=== PATIENT | female | born 1965 | race Caucasian/White ===

== ENCOUNTER 2016-06-13 12:51 | Day surgery (SDC) | payer MEDICAID ==
[~2016-06-13] VITALS: Ht 165.1 cm; Wt 64.1 kg
[~2016-06-13 12:51] MED LIST: BAYER CHEWABLE81 MG PO; CHRONULAC30 ML PO; KLONOPIN0.5 MG PO; OXYCODONE HCL5 MG PO; PHENERGAN25 M1 PO; ZEGERID 20 MG C1 CAP PO
[2016-06-13 13:47] LABS: BASOPHILS 0.5 % (0.0-2.0); EOSINOPHILS 0.9 % (0-7); HEMATOCRIT 24.7 % (36.0-48.0); HEMOGLOBIN 8.3 g/dL (12-16); IMMATURE GRANULOCYTES 0.5 % (0-5); LYMPHOCYTES 15.3 % (15-50); MCH 32.7 pg (26.0-34.0); MCHC 33.6 g/dL (31.0-37.0); MCV 97.2 fL (80.0-100.0); MEAN PLATELET VOLUME 11.3 fL (7.4-10.4); NEUTROPHILS 74.8 % (40-80); PLATELET COUNT 137 10x3/uL (130-400); RBC 2.54 10x6/uL (4.00-5.40); RDW 15.5 % (11.5-14.5); WBC 10.3 10x3/uL (4.8-10.8)
[2016-06-13 14:13] LABS: ALBUMIN 2.3 g/dL (3.4-5.0); ANION GAP 11.1 mmol/L (8-16); BILIRUBIN - TOTAL 2.16 mg/dL (0.2-1.3); CALCIUM 7.6 mg/dL (8.5-10.1); CARBON DIOXIDE 26.3 mmol/L (21.0-32.0); CREATININE - SERUM 2.2 mg/dL (0.6-1.3); POTASSIUM - SERUM 4.4 mmol/L (3.5-5.1); PROTEIN - SERUM 5.7 g/dL (6.4-8.2)
[2016-06-13] MEDS ORDERED: PROVENTIL HFA6.7 GM INH (14:57)
[2016-06-13] MEDS ORDERED: DESERYL100 MG PO (14:57)
[2016-06-13] MEDS ORDERED: FUROSEMIDE40 MG PO (14:58)
[2016-06-13] MEDS ORDERED: K-DUR20 MEQ PO (14:58)
[2016-06-13] MEDS ORDERED: ALDACTONE100 MG PO (14:58)
[2016-06-13] MEDS ORDERED: ZOFRAN ODT4 MG/UDTAB PO (14:58)
[2016-06-13] MEDS ORDERED: FOLATE0.4 MG PO (14:59)
[2016-06-13 15:04] VITALS: Ht 165.1 cm; Wt 64.1 kg
--- NOTE | 2016-07-03 12:04 | OP ---
PATIENT NAME: KRYS GOSS MEDICAL RECORD: [id number] :61 LOCATION:D.OPS ADMISSION DATE: SURGEON: BRITTNY MONTESINOS DO DATE OF OPERATION: 06/13/2016 PROCEDURE: EGD. ENDOSCOPIST: Brittny Montesinos DO. SCOPE: Olympus video gastroscope. MEDICATIONS: Propofol 140 mg and lidocaine 50 mg IV per anesthesia. INDICATION FOR TIVA: Cirrhosis and ascites. INDICATION FOR PROCEDURE: Dysphagia and variceal screening. FINDINGS: Informed consent was given. The patient was made comfortable with the above medications. After reaching an adequate level of sedation by slow IV push, the patient was placed on her left side. The endoscope was then advanced through the mouth under direct visualization to the second portion of the duodenum. In the esophagus, there was evidence of grade I to grade II esophageal varices located in the distal third of the esophagus down to the GE junction. I did not feel that these were large enough to warrant variceal banding. The scope was advanced beyond the GE junction into the stomach where there was diffuse portal hypertensive gastropathy present throughout all regions of the stomach. Upon retroflexion, the cardia appeared normal. The scope was then advanced down to the duodenum where there was some edematous changes related to portal hypertension located in the bulb and second portion of the duodenum. The duodenum was otherwise normal. Scope was then withdrawn from the patient. The patient tolerated the procedure well and there were no complications. IMPRESSION: 1. Grade I-II esophageal varices, not warranting esophageal variceal banding. 2. Portal hypertensive gastropathy and duodenopathy. PLAN AND RECOMMENDATIONS: 1. Recommend a barium esophagram regarding the dysphagia. There were no strictures encountered on this examination in the esophagus. 2. Continue current medications. 3. Recommend repeat EGD in 1 year for esophageal variceal surveillance. TRANSINT:[id number] Voice Confirmation ID: [id number] DOCUMENT ID: [id number] BRITTNY MONTESINOS DO at 1204 CC: [id number] DICTATION DATE: 06/13/16 1541 CLOTH PAINTER: 06/13/16 2233 [facility] 06/13/16 [place] [address]
== END 2016-06-13 17:00 | disposition home or self-care (01) ==
LOC: D.OPS 12:51
PROVIDERS: Internal Medicine Gastroenterology
DX: K76.6 Portal hypertension (principal); K31.89 Other diseases of stomach and duodenum; I85.10 Secondary esophageal varices without bleeding; K74.60 Unspecified cirrhosis of liver; R18.8 Other ascites

== ENCOUNTER → 2016-07-06 09:19 | Outpatient (CLI) | payer MEDICAID ==
[2016-06-13 15:04] VITALS: BMI 23.5
[~2016-07-06 09:19] MED LIST changes: +ALDACTONE100 MG PO; +DESERYL100 MG PO; +FOLATE0.4 MG PO; +FUROSEMIDE40 MG PO; +K-DUR20 MEQ PO; +PEPCID20 MG PO; +PROVENTIL HFA6.7 GM INH; +ZOFRAN ODT4 MG/UDTAB PO
[2016-07-06 11:15] LABS: BASOPHILS 0.8 % (0.0-2.0); EOSINOPHILS 1.7 % (0-7); HEMATOCRIT 27.9 % (36.0-48.0); HEMOGLOBIN 9.5 g/dL (12-16); IMMATURE GRANULOCYTES 0.2 % (0-5); LYMPHOCYTES 21.7 % (15-50); MCH 30.8 pg (26.0-34.0); MCHC 34.1 g/dL (31.0-37.0); MCV 90.6 fL (80.0-100.0); MEAN PLATELET VOLUME 10.2 fL (7.4-10.4); MONOCYTES 7.2 % (2-11); NEUTROPHILS 68.4 % (40-80); PLATELET COUNT 176 10x3/uL (130-400); RBC 3.08 10x6/uL (4.00-5.40); RDW 14.9 % (11.5-14.5); WBC 10.2 10x3/uL (4.8-10.8)
[2016-07-06 11:16] LABS: CREATININE - SERUM 2.1 mg/dL (0.6-1.3)
[2016-07-06 11:17] LABS: ALBUMIN 2.9 g/dL (3.4-5.0); ANION GAP 17.3 mmol/L (8-16); BILIRUBIN - TOTAL 2.8 mg/dL (0.2-1.3); CALCIUM 8.8 mg/dL (8.5-10.1); CARBON DIOXIDE 22.7 mmol/L (21.0-32.0)
== END | disposition home or self-care (01) ==
LOC: D.US 09:19
PROVIDERS: Internal Medicine Gastroenterology
DX: K74.60 Unspecified cirrhosis of liver (principal)

== ENCOUNTER → 2016-07-27 08:19 | Outpatient (CLI) | payer MEDICAID ==
[2016-06-13 15:04] VITALS: BMI 23.5
[~2016-07-27 08:19] MED LIST changes: -PEPCID20 MG PO
== END | disposition home or self-care (01) ==
LOC: D.RAD 08:19
DX: R11.2 Nausea with vomiting, unspecified (principal); R13.10 Dysphagia, unspecified

== ENCOUNTER 2016-08-03 10:20 | Inpatient (IN) | payer MEDICAID ==
[~2016-08-03] VITALS: Ht 165.1 cm; Wt 61.4 kg
--- NOTE | ~2016-08-03 | OP ---
PATIENT NAME: KRYS GOSS MEDICAL RECORD: [id number] :61 LOCATION:D.ICU D.2312 ADMISSION DATE:08/03/16 SURGEON: STEVIE OSEGUERA MD DATE OF OPERATION: 08/17/2016 DATE OF OPERATION: 08/17/2016 PREOPERATIVE DIAGNOSES: 1. Acute renal failure. 2. Alcoholic cirrhosis. 3. Esophageal varices secondary to alcoholic cirrhosis. 4. Portal hypertension. 5. Ascites secondary to cirrhosis. POSTOPERATIVE DIAGNOSES: 1. Acute renal failure. 2. Alcoholic cirrhosis. 3. Esophageal varices secondary to alcoholic cirrhosis. 4. Portal hypertension. 5. Ascites secondary to cirrhosis. PROCEDURE: Right IJ 12-1/2 cm Trialysis catheter. SURGEON: Stevie Oseguera MD. REPORT OF PROCEDURE: The patient's right neck was prepped and draped in sterile fashion. A needle was used to inject a total of 5 cc of 1% lidocaine into the right neck. We then used a scalp needle to find the right internal jugular vein and then placed our larger Angiocath needle through this needle a wire was advanced with ease. Over this wire, dilator was placed followed by the Trialysis catheter. The catheter aspirated nonpulsatile dark blood and flushed easily in all 3 ports. This was sutured into place with 4-0 nylons. COMPLICATIONS: None. CONDITION: Stable. ANESTHESIA: Local. BLOOD LOSS: Minimal. Procedure done in the ICU at the bedside. TRANSINT:[id number] Voice Confirmation ID: [id number] DOCUMENT ID: [id number] STEVIE OSEGUERA MD CC: [id number] DICTATION DATE: 08/17/161213 REMOTE BROADCAST TECHNICIAN: 08/17/16 2318 ADM IN [place] [id number] [place] [address]
[2016-08-03 11:18] LABS: APPEARANCE HAZY (CLEAR); COLOR DK YELLOW (YELLOW); GLUCOSE NEGATIVE (NEGATIVE); KETONE NEGATIVE (NEGATIVE); NITRITE NEGATIVE (NEGATIVE); PROTEIN NEGATIVE (NEGATIVE)
[2016-08-03 11:22] LABS: BACTERIA MODERATE /hpf (NONE SEEN); BILIRUBIN 2+ (NEGATIVE); EPITHELIAL CELLS 0-5 /hpf (0-5); HYALINE CAST OCC /lpf (NONE SEEN); LEUKOCYTE ESTERASE TRACE (NEGATIVE); RED CELLS - URINE >50 /hpf (0-5); WHITE CELLS - URINE 0-5 /hpf (0-5)
[2016-08-03 11:32] LABS: INR 2.04 (0.85-1.17)
[2016-08-03 11:33] LABS: APTT 34.8 SECONDS (22.8-39.4)
[2016-08-03 13:33] LABS: BASOPHILS 0.1 % (0-2); EOSINOPHILS 0 % (0-7); IMMATURE GRANULOCYTES 0.2 % (0-5); LYMPHOCYTES 15.8 % (15-50); MCHC 34.1 g/dL (31.0-37.0); MEAN PLATELET VOLUME 9.6 fL (7.4-10.4); MONOCYTES 7.9 % (2-11); PLATELET COUNT 209 10x3/uL (130-400); RDW 15.6 % (11.5-14.5); WBC 9.2 10x3/uL (4.8-10.8)
[2016-08-03 13:36] LABS: HEMOGLOBIN 7.5 g/dL (12-16)
[2016-08-03 14:25] LABS: ALBUMIN 2.6 g/dL (3.4-5.0); ALKALINE PHOSPHATASE 110 U/L (46-116); ALT (SGPT) 6 U/L (10-68); BILIRUBIN - TOTAL 4.54 mg/dL (0.2-1.3); CALC OSMOLALITY 276 mosm/kg (275-300); CALCIUM 8.9 mg/dL (8.5-10.1); CARBON DIOXIDE 29.8 mmol/L (21.0-32.0); CHLORIDE - SERUM 93 mmol/L (98-107); CREATININE - SERUM 3.4 mg/dL (0.6-1.3); GLUCOSE 105 mg/dL (74-106); PROTEIN - SERUM 6.5 g/dL (6.4-8.2); SODIUM 133 mmol/L (136-145); UREA NITROGEN 44 mg/dL (7-18); eGFR NON AFRICAN AMERICAN 15 mL/min (90-120)
[2016-08-03 14:33] LABS: AMYLASE - SERUM 49 U/L (25-115); LIPASE 150 U/L (73-393); MAGNESIUM - SERUM 1.7 mg/dL (1.8-2.4); PRO BNP 1385 pg/mL (0-125); TROPONIN-I < 0.017 ng/mL (0.000-0.060)
[2016-08-03 18:59] LABS: HEMATOCRIT 21.9 % (36.0-48.0)
[2016-08-03 19:01] LABS: HEMOGLOBIN 7.2 g/dL (12-16)
[2016-08-03 19:21] LABS: CKMB 0.3 U/L (0.0-3.6); CREATINE KINASE 23 UL (21-215)
[2016-08-03 20:00] VITALS: BP 120/69; BP 91/57
--- NOTE | 2016-08-03 21:46 | NUR ---
PATEINT REFUSES BRAGA AT THIS TIME, 325 TEA COLORED URINE WITH SEDIMENT NOTED IN URINE HAT. PIV INFUSING NS@100mL/HR. 2 ORDERS NOTED ON E-MAR. PATIENT PLACED ON FALLS PERCAUTION DUE TO INSTABLILTY. SHE HAD A SHOWER, AND SON AT BEDSIDE.
[2016-08-03 23:00] VITALS: BP 91/57
[2016-08-03 23:54] VITALS: BP 92/47
[2016-08-04] VITALS (19 sets, daily range): BP systolic 85–120; BP diastolic 45–73; Ht 165.1 cm; Wt 61.4 kg
[2016-08-04] MEDS ORDERED: PEPCID20 MG PO (01:26)
--- NOTE | 2016-08-04 02:31 | NUR ---
1 UNIT OF PBRC STARTED, INFUSING @100mL/HR.
--- NOTE | 2016-08-04 03:00 | NUR ---
BLOOD INFUSING WITH NO DISTRESS NOTED, PT DENIES ANY DISCOMFORT, SAFETY MEASURES IN PLACE, CL IN REACH
[2016-08-04 06:56] LABS: BASOPHILS 0.1 % (0-2); EOSINOPHILS 0.4 % (0-7); HEMATOCRIT 25.4 % (36.0-48.0); IMMATURE GRANULOCYTES 0.2 % (0-5); LYMPHOCYTES 26.8 % (15-50); MCH 30.6 pg (26.0-34.0); MCHC 34.3 g/dL (31.0-37.0); MCV 89.4 fL (80.0-100.0); MONOCYTES 8.7 % (2-11); NEUTROPHILS 63.8 % (40-80); PLATELET COUNT 193 10x3/uL (130-400); RBC 2.84 10x6/uL (4.00-5.40); RDW 15.2 % (11.5-14.5); WBC 8.9 10x3/uL (4.8-10.8)
[2016-08-04 06:57] LABS: HEMOGLOBIN 8.7 g/dL (12-16)
[2016-08-04 07:05] LABS: INR 2.38 (0.85-1.17); PROTIME 26.1 SECONDS (11.6-15.0)
--- NOTE | 2016-08-04 07:10 | NUR ---
DR BUSTAMANTE CALLED DURING THE SHIFT LAST NIGHT AND WANTED A CONSULT TO IR FOR DOING A LARGE VOLUME PARACENTISIS, TRANSFUSE 1 UNIT OF BLOOD, DECREASE IV RATE TO 75mL/HR, ORDERED LEVAQUIN FOR UTI.
[2016-08-04 07:15] LABS: ALBUMIN 2.4 g/dL (3.4-5.0); ALKALINE PHOSPHATASE 105 U/L (46-116); BILIRUBIN - TOTAL 4.17 mg/dL (0.2-1.3); CALC OSMOLALITY 273 mosm/kg (275-300); CALCIUM 8.8 mg/dL (8.5-10.1); CARBON DIOXIDE 29.4 mmol/L (21.0-32.0); CHLORIDE - SERUM 93 mmol/L (98-107); GLUCOSE 92 mg/dL (74-106); PROTEIN - SERUM 6.4 g/dL (6.4-8.2); SODIUM 131 mmol/L (136-145); UREA NITROGEN 43 mg/dL (7-18); eGFR NON AFRICAN AMERICAN 17 mL/min (90-120)
[2016-08-04 07:17] LABS: ALT (SGPT) 3 U/L (10-68); POTASSIUM - SERUM 2.9 mmol/L (3.5-5.1)
[2016-08-04 07:27] LABS: CKMB 0.2 U/L (0.0-3.6); CREATINE KINASE 17 UL (21-215); MAGNESIUM - SERUM 1.7 mg/dL (1.8-2.4); PHOSPHOROUS 3.1 mg/dL (2.5-4.9)
[2016-08-04 07:29] LABS: TROPONIN-I 0.017 ng/mL (0.000-0.060)
--- NOTE | 2016-08-04 09:22 | NUR ---
AWAKE AND ALERT. ORIENTED X3. C/O NAUSEA AT THIS TIME. GIVEN 4MG ZOFRAN SLOW IVP FOR SAME. WILL MONITOR. LUNGS ARE CLEAR BILATERALLY, NO COUGH NOTED. SKIN IS INTACT WITHOUT REDNESS. IV TO RIGHT WRIST IS PATENT WITHOUT REDNESS AT INSERTION SITE. DENIES NEEDS.
--- NOTE | 2016-08-04 10:00 | NUR ---
RESTING QUIETLY IN BED WITH EYES CLOSED. NO C/O VOICED.
[2016-08-04 10:38] LABS: HEMATOCRIT 25.3 % (36.0-48.0); HEMOGLOBIN 8.6 g/dL (12-16)
--- NOTE | 2016-08-04 13:45 | NUR ---
ANDREIA DRIP UP AT THIS TIME. DENIES NEEDS.
--- NOTE | 2016-08-04 15:30 | NUR ---
DR. COLLAZO HERE. NEW ORDERS RECEIVED FOR CT GUIDED PARACENTESIS TODAY. CONSENT SIGNED PER PATIENT. FAMILY IN ROOM.
--- NOTE | 2016-08-04 16:47 | NUR ---
REQUESTED AND GIVEN 1MG DILAUDID SLOW IVP FOR C/O ABDOMINAL PAIN. WILL MONITOR.
--- NOTE | 2016-08-04 17:08 | NUR ---
RETURNED FROM PARACENTESIS. REPORTED 5.5L OFF.
[2016-08-04 17:19] LABS: HEMATOCRIT 26.4 % (36.0-48.0); HEMOGLOBIN 8.9 g/dL (12-16)
[2016-08-04 17:49] LABS: PROTEIN - BODY FLUID 2.2 G/DL
[2016-08-04 18:33] LABS: LYMPH - BF 64 %; MACROPHAGES BF 29 %; NEUT - BF 7 %
--- NOTE | 2016-08-04 19:28 | NUR ---
RESTING QUIETLY WIT EYES CLOSED. VSS. NO CHANGES NOTED.
--- NOTE | 2016-08-04 19:51 | NUR ---
GREETED AND ASSESSED PT AT THIS TIME.
--- NOTE | 2016-08-04 22:05 | NUR ---
ALL HS MEDS WERE GIVEN. PT HAS A VISITOR IN THE ROOM AND SHE IS RESING WITH HER EYES CLOSED. WHEN ASSESSED SHE WAS EASY TO CRY OUT IF HER ABD WAS TOUCHED. SHE FEELS IF IT IS FEELING BACK UP.
[2016-08-04 23:21] LABS: HEMATOCRIT 21.7 % (36.0-48.0)
[2016-08-04 23:24] LABS: HEMOGLOBIN 7.3 g/dL (12-16)
[2016-08-05] VITALS (12 sets, daily range): BP systolic 90–123; BP diastolic 52–64
--- NOTE | 2016-08-05 04:48 | NUR ---
LAB CALLED WITH THE RESULTS OF H & H ABOUT MIDNIGHT AND IT WAS 7.3 / 21.7. DR BUSTAMANTE WAS CALLED AND AN ORDER FOR ONE UNIT WAS TAKEN. SHE WAS GIVEN HER IVPB ANTIBOTICS A LITTLE EARLY AND THEN THE BLOOD WAS STARTED. IT IS STILL INFUSING AT THIS TIME.
[2016-08-05 05:41] LABS: ALBUMIN 2.8 g/dL (3.4-5.0); BILIRUBIN - TOTAL 3.31 mg/dL (0.2-1.3); CALCIUM 8.3 mg/dL (8.5-10.1); CREATININE - SERUM 2.4 mg/dL (0.6-1.3); MAGNESIUM - SERUM 1.7 mg/dL (1.8-2.4); PHOSPHOROUS 2.7 mg/dL (2.5-4.9); PROTEIN - SERUM 5.6 g/dL (6.4-8.2)
[2016-08-05 05:44] LABS: BASOPHILS 0.1 % (0-2); EOSINOPHILS 0.6 % (0-7); HEMOGLOBIN 8.1 g/dL (12-16); IMMATURE GRANULOCYTES 0.3 % (0-5); LYMPHOCYTES 22.7 % (15-50); MCH 29.6 pg (26.0-34.0); MCHC 33.8 g/dL (31.0-37.0); MCV 87.6 fL (80.0-100.0); MEAN PLATELET VOLUME 10.8 fL (7.4-10.4); MONOCYTES 7.9 % (2-11); NEUTROPHILS 68.4 % (40-80); RBC 2.74 10x6/uL (4.00-5.40); RDW 15.1 % (11.5-14.5); WBC 6.7 10x3/uL (4.8-10.8)
[2016-08-05 05:45] LABS: PLATELET COUNT 124 10x3/uL (130-400)
[2016-08-05 05:52] LABS: ANION GAP 13.6 mmol/L (8-16); POTASSIUM - SERUM 3.6 mmol/L (3.5-5.1)
[2016-08-05 07:53] LABS: INR 2.58 (0.85-1.17); PROTIME 27.9 SECONDS (11.6-15.0)
[2016-08-05 11:35] LABS: HEMATOCRIT 28.2 % (36.0-48.0); HEMOGLOBIN 9.7 g/dL (12-16)
--- NOTE | 2016-08-05 16:30 | NUR ---
UP TO BR WITH SBA. VOIDED 500cc DARK TEA COLORED URINE. LINENS CHANGED.
[2016-08-05 17:07] LABS: HEMATOCRIT 30.5 % (36.0-48.0); HEMOGLOBIN 10.4 g/dL (12-16)
--- NOTE | 2016-08-05 18:32 | NUR ---
REFUSED CL SUPPER TRAY. DRANK A LEMON/[place] SODA. NO CHANGES NOTED AT THIS TIME. DENIES NEEDS.
--- NOTE | 2016-08-05 19:40 | NUR ---
RECIEVED SHIFT REPORT. PT IS LYING IN BED. ALERT AND ORIENTED AND ABLE TO VERBALIZE NEEDS. IV IS PATENT AND FLUIDS ARE RUNNING PER ORDER. PT IS AMBULATORY WITH ASSISTANCE. PT DENIES ANY PAIN AT THIS TIME. NO NEEDS ARE VERBALIZED AT THIS TIME. WILL CONTINUE TO MONITOR. SIDE RAILS ARE UP X 2. BED IS IN LOWEST POSITION. CALL LIGHT IS WITHIN REACH.
--- NOTE | 2016-08-05 20:41 | NUR ---
SHIFT ASSESSMENT COMPLETED. NIGHT MEDS GIVEN WITH NO PROBLEMS. NO NEEDS ARE VOICED. VISITOR AT BEDSIDE. WILL MONITOR. SIDE RAILS X 2. BED LOW. CALL LIGHT IN REACH.
[2016-08-05 23:18] LABS: HEMOGLOBIN 9.4 g/dL (12-16)
--- NOTE | 2016-08-06 02:40 | NUR ---
PT IV TO RIGHT WRIST LEAKING. D/C'D WITH CATHETER INTACT. NEW IV RESITED TO LEFT FOREARM. 22G. 1 ATTEMPT. GOOD BLOOD RETURN. FLUSHES W/O DIFFICULTY. FLUIDS HOOKED BACK UP PER ORDER. PT TOLERATED WELL. DENIES NEEDS. WILL MONITOR. SIDE RAILS X 2. BED LOW. CALL LIGHT IN REACH.
[2016-08-06 04:00] VITALS: BP 114/66
--- NOTE | 2016-08-06 07:45 | NUR ---
PATIENT RESTING QUIETLY WITH EYES CLOSED. RESPIRATIONS ARE EVEN AND UNLABORED ON ROOM AIR. NO SIGNS OF DISTRESS NOTED.
[2016-08-06 07:49] LABS: BASOPHILS 0.1 % (0-2); EOSINOPHILS 0.2 % (0-7); IMMATURE GRANULOCYTES 0.1 % (0-5); LYMPHOCYTES 7.6 % (15-50); MCH 30.4 pg (26.0-34.0); MCHC 34.6 g/dL (31.0-37.0); MCV 87.8 fL (80.0-100.0); MEAN PLATELET VOLUME 9.7 fL (7.4-10.4); MONOCYTES 7.4 % (2-11); NEUTROPHILS 84.6 % (40-80); RBC 2.96 10x6/uL (4.00-5.40); RDW 15.2 % (11.5-14.5)
[2016-08-06 07:58] VITALS: BP 99/55
[2016-08-06 08:06] LABS: PLATELET COUNT 154 10x3/uL (130-400); WBC 8.8 10x3/uL (4.8-10.8)
[2016-08-06 08:10] LABS: PROTIME 22.9 SECONDS (11.6-15.0)
[2016-08-06 08:16] LABS: ALBUMIN 2.5 g/dL (3.4-5.0); ANION GAP 14.2 mmol/L (8-16); BILIRUBIN - TOTAL 3.9 mg/dL (0.2-1.3); CALCIUM 8.2 mg/dL (8.5-10.1); CARBON DIOXIDE 23.2 mmol/L (21.0-32.0); CREATININE - SERUM 1.9 mg/dL (0.6-1.3); MAGNESIUM - SERUM 1.3 mg/dL (1.8-2.4); POTASSIUM - SERUM 3.4 mmol/L (3.5-5.1); PROTEIN - SERUM 5.4 g/dL (6.4-8.2)
[2016-08-06 08:24] LABS: PHOSPHOROUS 1.9 mg/dL (2.5-4.9)
[2016-08-06 08:37] LABS: INR 2.02 (0.85-1.17)
[2016-08-06 11:54] VITALS: BP 116/60
[2016-08-06 15:50] VITALS: BP 116/64
[2016-08-06 20:00] VITALS: BP 118/68
--- NOTE | 2016-08-06 20:00 | NUR ---
ASSESSMENT PER FLOWSHEET. IV PATENT LEFT HAND OF NS AT 75CC'S/HR ZOFRANGTT AT 4.7CC'S/HR K+RIDER #1 INFUSING AT 55CC'S/HR. SITE CLEAR. SPOUSE AT BEDSIDE.
--- NOTE | 2016-08-06 21:00 | NUR ---
ATTEMPT TO GIVEN PATIENT PO MAGNESIUM PER ELECTROLYTE PROTOCAL FOR A LEVEL OF 1.3. PATIENT VOMITED MED UP WILL TRY IV MAGNESIUM WHEN ABLE. TRIED PO PHOSPEROUS PATIENT VOMITED IT UP. NOTIFIED PHARMAY NEED FOR IV PHOS.
--- NOTE | 2016-08-06 22:00 | NUR ---
EYES CLOSED RESPIRATIONS WITH EASE AND UNLABORED.
--- NOTE | 2016-08-06 23:48 | NUR ---
K+ RIDER #3 HUNG PER ELECTROLYTE PROTOCAL.
[2016-08-07] VITALS: BP 112/66
--- NOTE | 2016-08-07 | NUR ---
RESTING QUIETLY K+ RIDER STILL HANGING. K+ #2 UP.
--- NOTE | 2016-08-07 01:14 | NUR ---
FIRST DOSE OF MAGNESIUM GM1 HUNG FOR A LEVEL OF 1.3 GIVEN PER ELECTROLYTE PROTOCAL.
--- NOTE | 2016-08-07 01:33 | NUR ---
LAST K+ 10MEQ HUNG PER ELECTROLYTE PROTOCAL. PATIENT STILL VOMITS INTO BLUE BAG NEW BAG GIVEN TO PATIENT.
--- NOTE | 2016-08-07 04:00 | NUR ---
MEDS PER JUN. RESTING QUIETLY.
[2016-08-07 05:39] LABS: BASOPHILS 0 % (0-2); EOSINOPHILS 0.2 % (0-7); HEMATOCRIT 25.6 % (36.0-48.0); HEMOGLOBIN 8.7 g/dL (12-16); IMMATURE GRANULOCYTES 0.4 % (0-5); LYMPHOCYTES 8.9 % (15-50); MCV 88.3 fL (80.0-100.0); MEAN PLATELET VOLUME 9.8 fL (7.4-10.4); MONOCYTES 8.6 % (2-11); NEUTROPHILS 81.9 % (40-80); PLATELET COUNT 137 10x3/uL (130-400); RDW 15.2 % (11.5-14.5); WBC 8.4 10x3/uL (4.8-10.8)
[2016-08-07 06:02] LABS: INR 1.63 (0.85-1.17); PROTIME 19.3 SECONDS (11.6-15.0)
[2016-08-07 06:08] LABS: ALBUMIN 2.3 g/dL (3.4-5.0); BILIRUBIN - TOTAL 2.71 mg/dL (0.2-1.3); CALCIUM 8.2 mg/dL (8.5-10.1); CARBON DIOXIDE 23.5 mmol/L (21.0-32.0); CREATININE - SERUM 1.8 mg/dL (0.6-1.3); MAGNESIUM - SERUM 2.3 mg/dL (1.8-2.4); PHOSPHOROUS 2.9 mg/dL (2.5-4.9); POTASSIUM - SERUM 3.5 mmol/L (3.5-5.1); PROTEIN - SERUM 5.2 g/dL (6.4-8.2)
--- NOTE | 2016-08-07 06:41 | NUR ---
NO CHANGES IN ASSESSMENT. LAST DOSE OF MAGNESIUM HANGING.
[2016-08-07 08:25] VITALS: BP 111/70
--- NOTE | 2016-08-07 09:00 | NUR ---
Patient Name: KRYS GOSS Admission Status: ER Accout number: [id number] Admission Date: 08-03-2016 : 1965 Admission Diagnosis:OTHER ASCITES Attending: CIRA Current LOS: 4 Anticipated DC Date: 08-10-2016 Planned Disposition: Home Primary Insurance: [place] PRIVATE OPTIONS [place]FF[place] Discharge Planning Comments: CM MET WITH PATIENT REGARDING D/C NEEDS AND PLANS. PATIENT STATED SHE LIVES WITH HER SPOUSE (LIANNA) AND HE WILL DRIVE HER HOME AT DISCHARGE. PATIENT STATED THERE ARE NO STEPS OR STAIRS AT HER HOME. PATIENT IS INDENDENT WITH HER CARE AND HAS A WALKER, WHEELCHAIR, SHOWER CHAIR, AND BEDSIDE COMMODE. PATIENTS SPOUSE HELPS HER WITH HER MEDICATIONS. PATIENTS PCP IS DR. ZHANG AND PHARMACY IS [facility]. PATIENT DOES NOT THINK SHE WILL NEED HOME HEALTH AT DISCHARGE. CM WILL CONTINUE TO FOLLOW PATIENT WITH D/C NEEDS AND PLANS. PCP DR. ZHANG PHARMACY [facility] [phone] LIANNA (SPOUSE) [phone] Supervisor Byproducts: Deb Urbina Is the patient Alert and Oriented? Yes 0 * How many steps to enter\exit or inside your home? 0 0 * PCP DR. ZHANG 0 * Pharmacy [facility] 0 * Preadmission Environment Home with Family 0 * ADLs Independent 0 * Equipment Bedside Commode Shower Chair Walker Wheelchair 0 * List name and contact numbers for known caregivers / representatives who currently or will assist patient after discharge: LIANNA (SPOUSE) [phone] 0 * Community resources currently utilized None 0 * Additional services required to return to the preadmission environment? Yes 0 * Can the patient safely return to the preadmission environment? Yes 0 * Has this patient been hospitalized within the prior 30 days at any hospital? No 0 Grand Total: 0
[2016-08-07 12:45] VITALS: BP 130/73
--- NOTE | 2016-08-07 13:27 | NUR ---
NUTRITION MONITORING & EVAL CHART REVIEWED. CLEAR LIQUIDS, NOT TOLERATING PER MD NOTE. WILL CONTINUE TO MONITOR PO INTAKE, PT PROGRESS. RD FOLLOWING
--- NOTE | 2016-08-07 16:28 | NUR ---
PT AOX4 RESP EVEN AND NONLABORED IV TO LEFT FOREARM PATENT AND INTACT. PT HERE FOR ASCITES. PT DENIES NEEDS AT THIS TIME. SRX2 CALL LIGHT WITHIN REACH WILL CONTINUE TO MONITOR
[2016-08-07 16:41] VITALS: BP 103/56
[2016-08-07 20:00] VITALS: BP 99/54
--- NOTE | 2016-08-07 20:00 | NUR ---
ASSESSMENT PER FLOWSHEET. ALERT AND ORINETED X3 STATES FEELING MUCH BETTER NO NAUSEA OR VOMITING. IV PATENT LEFT HAND OF BANANA BAG AT 75CC'S/HR ZOFRAN GTT AT 4.6CC'S/HR. SMILING AND TALKATIVE.
--- NOTE | 2016-08-07 21:15 | NUR ---
TOOK MEDS PER JUN. NO N OR V.
[2016-08-08] VITALS (13 sets, daily range): BP systolic 92–116; BP diastolic 56–69
--- NOTE | 2016-08-08 | NUR ---
EYES CLOSED RESPIRATIONS WITH EASE AND UNLABORED.
--- NOTE | 2016-08-08 03:37 | NUR ---
RESTING QUIETLY AROUSES EASILY TO VERBAL STIMULI.
[2016-08-08 06:42] LABS: BASOPHILS 0 % (0-2); EOSINOPHILS 1.5 % (0-7); HEMATOCRIT 24.2 % (36.0-48.0); HEMOGLOBIN 8.1 g/dL (12-16); IMMATURE GRANULOCYTES 0.2 % (0-5); LYMPHOCYTES 18.2 % (15-50); MCH 29.3 pg (26.0-34.0); MCHC 33.5 g/dL (31.0-37.0); MCV 87.7 fL (80.0-100.0); MEAN PLATELET VOLUME 10.6 fL (7.4-10.4); MONOCYTES 11.6 % (2-11); NEUTROPHILS 68.5 % (40-80); PLATELET COUNT 133 10x3/uL (130-400); RBC 2.76 10x6/uL (4.00-5.40); RDW 15.5 % (11.5-14.5); WBC 9.5 10x3/uL (4.8-10.8)
[2016-08-08 06:50] LABS: ALBUMIN 2.5 g/dL (3.4-5.0); BILIRUBIN - TOTAL 2.37 mg/dL (0.2-1.3); CALCIUM 8.3 mg/dL (8.5-10.1); CARBON DIOXIDE 24.9 mmol/L (21.0-32.0); CREATININE - SERUM 1.7 mg/dL (0.6-1.3); MAGNESIUM - SERUM 2.6 mg/dL (1.8-2.4); PROTEIN - SERUM 5.4 g/dL (6.4-8.2)
[2016-08-08 06:51] LABS: ANION GAP 12.1 mmol/L (8-16)
--- NOTE | 2016-08-08 06:58 | NUR ---
K+ LEVEL=3.0 40MEQ KCL PO GIVEN IN JUICE PER ELECTROLYTE PROTOCAL.
--- NOTE | 2016-08-08 07:10 | NUR ---
REPORT RECEIVED FROM CAR HOSTLER NURSE. CALL LIGHT IN REACH.
[2016-08-08 07:12] LABS: INR 1.85 (0.85-1.17); PROTIME 21.3 SECONDS (11.6-15.0)
--- NOTE | 2016-08-08 08:28 | NUR ---
PT WITH CLEAR LIQUID BREAKFAST TRAY AT THIS TIME. ALERT AND ORIENTED X4. DENIES NEEDS AT PRESENT TIME. RESPIRATIONS EVEN AND NON LABORED. CALL LIGHT IN REACH. WILL CONTIINUE WITH PLAN OF CARE.
--- NOTE | 2016-08-08 08:58 | NUR ---
ASSESSMENT COMPLETED. AM MEDS ADMINISTERED. REFUSES SCDs AT THIS TIME. IV TUBING CHANGED PER HOSPITAL POLICY. EMERGENCY CONTACT INFO OBTAINED AND PLACED IN CHART. REFUSES PASSWORD. CARE PLAN REVIEWE. CALL LIGHT IN REACH. WILL CONTINUE WITH PLAN OF CARE.
--- NOTE | 2016-08-08 10:26 | NUR ---
WILL RECEIVE ANOTHER UNIT OF PRBCs TODAY D/T HCT LESS THAN 25. PATIENT IS AWARE.
--- NOTE | 2016-08-08 11:15 | NUR ---
AT BEDSIDE AT THIS TIME. NO NEEDS VOICED. CALL LIGHT IN REACH.
--- NOTE | 2016-08-08 13:04 | NUR ---
SPOKE WITH LACEY BANUELOS, ABOUT PATIENT C/O PAIN AND NEEDING PAIN MEDS. NEW ORDER FOR DILAUDID 0.5 MG SIVP. ADMINISTERED PER ORDER. TO CT VIA BED.
--- NOTE | 2016-08-08 13:37 | NUR ---
BACK IN ROOM AT THIS TIME. MEDS ADMINISTERED PER ORDER. SAYS PAIN IS STILL A 10.
--- NOTE | 2016-08-08 13:56 | NUR ---
IV SITED TO RIGHT WRIST WITH 20 GA X2 STICKS.
--- NOTE | 2016-08-08 14:13 | NUR ---
PRBC UNIT 1 INITIATED @ 125 CC/HR VIA PUMP PER JAQUI MASTERS. VS WNL. CALL LIGHT IN REACH. WILL CONTINUE WITH PLAN OF CARE.
--- NOTE | 2016-08-08 16:40 | NUR ---
DILAUDID 0.5 MG SIVP PER C/O PAIN OF 7 ADMINISTERED IVP WITH OTHER EVENING MEDS. 40 MEQ K+ PO PER ELECTROLYTE. PRBC UNIT 1 COMPLETED. IV IS FLUSHING.
--- NOTE | 2016-08-08 18:42 | NUR ---
FLAGYL IVPB PER ORDER. NO CHANGES IN INITIAL ASSESSMENT. STILL REFUSES SCDs. AT BEDSIDE. CALL LIGHT IN REACH. WILL CONTINUE WITH PLAN OF CARE.
--- NOTE | 2016-08-08 19:55 | NUR ---
C/O ABDOMINAL PAIN RATES PAIN LEVEL #8. DILAUDID 0.5MG IVP GIVEN FOR PAIN CONTROL.
--- NOTE | 2016-08-08 20:00 | NUR ---
ASSESSMENT PER FLOWSHEET. IV PATENT LEFT HAND BANANA BAG AT 125CC'S/HR SALINE LOCK PATENT RT ARM. HOB UP 30 DEGREES. SR UP X2 CALL LIGHT WITHIN REACH SCD'S ON. DENIES NEEDS SPOUSE AT BEDSIDE.
[2016-08-09] VITALS (13 sets, daily range): BP systolic 87–122; BP diastolic 47–77
--- NOTE | 2016-08-09 | NUR ---
RESTING AT THIS TIME.
--- NOTE | 2016-08-09 01:20 | NUR ---
C/O PAIN IN ABDOMEN RATES PAIN LEVEL 10 SHARP.DILAUDID 0.5MG IVP GIVEN FOR PAIN CONTROL.
[2016-08-09 05:33] LABS: BASOPHILS 0.1 % (0-2); EOSINOPHILS 1.4 % (0-7); IMMATURE GRANULOCYTES 0.3 % (0-5); LYMPHOCYTES 17.9 % (15-50); MCH 30.2 pg (26.0-34.0); MCHC 34.2 g/dL (31.0-37.0); MCV 88.4 fL (80.0-100.0); MEAN PLATELET VOLUME 10.6 fL (7.4-10.4); MONOCYTES 13.7 % (2-11); NEUTROPHILS 66.6 % (40-80)
[2016-08-09 05:41] LABS: HEMATOCRIT 31.9 % (36.0-48.0); HEMOGLOBIN 10.9 g/dL (12-16); PLATELET COUNT 174 10x3/uL (130-400); RBC 3.61 10x6/uL (4.00-5.40); WBC 13.7 10x3/uL (4.8-10.8)
[2016-08-09 05:52] LABS: ALBUMIN 2.6 g/dL (3.4-5.0); BILIRUBIN - TOTAL 3.69 mg/dL (0.2-1.3); CALCIUM 8.6 mg/dL (8.5-10.1); CARBON DIOXIDE 24.3 mmol/L (21.0-32.0); CREATININE - SERUM 1.9 mg/dL (0.6-1.3); PROTEIN - SERUM 5.9 g/dL (6.4-8.2)
[2016-08-09 05:53] LABS: ANION GAP 10.9 mmol/L (8-16); POTASSIUM - SERUM 4.2 mmol/L (3.5-5.1)
--- NOTE | 2016-08-09 06:29 | NUR ---
RESTING QUIETLY REMAINS NPO FOR PROCEDURE
--- NOTE | 2016-08-09 07:50 | NUR ---
SLEEPING, AROUSED TO VOICE, DENIES NEEDS, WILL CONTINUE TO MONITOR
--- NOTE | 2016-08-09 12:40 | NUR ---
PATIENT IN BED RESTING QUIETLY. RESPIRATIONS EVEN AND UNLABORED. SIDE RAILS UP X2. BED IN LOW POSITION. CALL LIGHT IN REACH.
[2016-08-10] VITALS: BP 111/61
[2016-08-10 04:00] VITALS: BP 99/59
--- NOTE | 2016-08-10 04:15 | NUR ---
PT HAS HAD 2 DARK WATERY STOOLS THIS SHIFT. SENT DOWN SAMPLES TO LAB. GAVE DILAUDID ONCE FOR RIGHT SIDE PAIN. PT C/O OF "A LITTLE NAUSEA." ABDOMEN DISTENDED AND FIRM. CLEAR LIQUID DIET. WILL CONTINUE TO MONITOR.
[2016-08-10 06:54] LABS: BASOPHILS 0.2 % (0-2); EOSINOPHILS 1.8 % (0-7); HEMATOCRIT 30.2 % (36.0-48.0); HEMOGLOBIN 10.3 g/dL (12-16); IMMATURE GRANULOCYTES 0.3 % (0-5); LYMPHOCYTES 24.6 % (15-50); MCHC 34.1 g/dL (31.0-37.0); MEAN PLATELET VOLUME 10.4 fL (7.4-10.4); MONOCYTES 18.6 % (2-11); NEUTROPHILS 54.5 % (40-80); PLATELET COUNT 181 10x3/uL (130-400); RBC 3.43 10x6/uL (4.00-5.40); RDW 16.4 % (11.5-14.5); WBC 12.3 10x3/uL (4.8-10.8)
[2016-08-10 07:12] LABS: ALBUMIN 2.5 g/dL (3.4-5.0); BILIRUBIN - TOTAL 2.75 mg/dL (0.2-1.3); CALCIUM 8.4 mg/dL (8.5-10.1); PROTEIN - SERUM 5.7 g/dL (6.4-8.2)
[2016-08-10 07:15] LABS: ANION GAP 15.3 mmol/L (8-16); CARBON DIOXIDE 18.1 mmol/L (21.0-32.0); CREATININE - SERUM 2.5 mg/dL (0.6-1.3); POTASSIUM - SERUM 3.4 mmol/L (3.5-5.1)
--- NOTE | 2016-08-10 07:45 | NUR ---
AWAKE, HAS SOME COMPLAINTS OF PAIN, PAIN MEDS GIVEN PER MAR, DENIES OTHER NEEDS, BED LOWEST POSITION, CALL LIGHT IN REACH, WILL CONTINUE TO MONITOR
[2016-08-10 07:50] VITALS: BP 86/44
--- NOTE | 2016-08-10 08:00 | NUR ---
PATIENT IN MID CLEMENT POSITION RESTING WITH EYE CLOSED. RESPIRATIONS EVEN AND UNLABORED. SIDE RAILS UP X2. BED IN LOW POSITION. CALL LIGHT IN REACH.
[2016-08-10 12:10] VITALS: BP 91/47
--- NOTE | 2016-08-10 13:01 | NUR ---
NUTRITION MONITORING & EVAL CHART REVIEWED. CURRENTLY ON CLEAR LIQUID DIET. REFUSED LUNCH. PT MAY REQUIRE PPN NUTRITION SUPPORT IF UNABLE TO TOLERATE FULL LIQUIDS IN [address] FOLLOWING
[2016-08-10 15:40] VITALS: BP 84/49
[2016-08-10 20:00] VITALS: BP 93/49
--- NOTE | 2016-08-10 21:56 | NUR ---
REC'D. ASSISTED TO BATHRM. STATES HAS HAD SEVERAL LOOSE STOOLS TODAY.C/O GENERALIZED PAIN RATING 2 ON 1-10 PAIN SCALE.WILL CONTINUE TO MONITOR FOR ANY CHGES AND FOLLOW CURRENT PLAN OF CARE.
--- NOTE | 2016-08-10 22:58 | NUR ---
PATIENT RESTING IN BED WITH EYES CLOSED AND NO VISIBLE SIGNS OF DISTRESS. BED IN LOWEST POSITION AND CALL LIGHT WITHIN REACH.
[2016-08-11] VITALS: BP 101/66
[2016-08-11 04:00] VITALS: BP 96/56
[2016-08-11 05:13] LABS: BASOPHILS 0.2 % (0-2); EOSINOPHILS 1.4 % (0-7); HEMATOCRIT 27.5 % (36.0-48.0); HEMOGLOBIN 9.4 g/dL (12-16); IMMATURE GRANULOCYTES 0.5 % (0-5); LYMPHOCYTES 21.6 % (15-50); MCH 29.8 pg (26.0-34.0); MCHC 34.2 g/dL (31.0-37.0); MCV 87.3 fL (80.0-100.0); MEAN PLATELET VOLUME 10.7 fL (7.4-10.4); MONOCYTES 16.5 % (2-11); NEUTROPHILS 59.8 % (40-80); PLATELET COUNT 175 10x3/uL (130-400); RBC 3.15 10x6/uL (4.00-5.40); RDW 16.2 % (11.5-14.5); WBC 10.7 10x3/uL (4.8-10.8)
[2016-08-11 05:34] LABS: ALBUMIN 2.4 g/dL (3.4-5.0); ANION GAP 16.8 mmol/L (8-16); BILIRUBIN - TOTAL 2.3 mg/dL (0.2-1.3); CALCIUM 8.4 mg/dL (8.5-10.1); CREATININE - SERUM 2.8 mg/dL (0.6-1.3); POTASSIUM - SERUM 3.8 mmol/L (3.5-5.1); PROTEIN - SERUM 5.3 g/dL (6.4-8.2)
--- NOTE | 2016-08-11 07:48 | NUR ---
RESTING, NO DISTRESS NOTED, BREATHING EVEN UNLABORED, CALL LIGHT IN REACH, BED LOWEST POSITION, WILL CONTINUE TO MONITOR
[2016-08-11 09:57] VITALS: BP 107/58
[2016-08-11 11:56] VITALS: BP 99/57
[2016-08-11 16:32] VITALS: BP 96/49
[2016-08-11 20:00] VITALS: BP 93/60
--- NOTE | 2016-08-11 22:29 | NUR ---
REC'D IN BED WATCHING TV.DENIES NAUSEA. STATES HAD GOOD DAY TODAY.ABD. REMAINS DISTENDED AND FIRM.DENIES PAIN AT PRESENT TIME.WILL CONTINUE TO MONITOR FOR ANY CHGES. AND FOLLOW CURRENT PLAN OF CARE.
--- NOTE | 2016-08-12 02:46 | NUR ---
PT IS AWAKE SITTING UP AT 30 DEGREES WITH BLUE BAG FOR NAUSEA IN HER HANDS. SHE IS NOT VOMITING AND HER IS ASLEEP AT THE BEDSIDE. THE LIGHTS ARE DIM AND NURSE IS TREATING THE NAUSEA. THE BED IS LOW, RAILS UP X'S 2 WITH THE CALL LGIHT AT HAND.
--- NOTE | 2016-08-12 03:39 | NUR ---
PT. IN BED WITH HOB UP FOR COMFORT AND AWAKENS EASILY I ENTER ROOM. PT, WITH ASCITIES TO ABD. PT. DENIES ANY PROBLEMS AT THIS TIME. MALE VISITOR STAYING WITH PTMerline COULTER. CALL LIGHT WITHIN REACH.
[2016-08-12 04:00] VITALS: BP 94/49
[2016-08-12 04:53] LABS: BASOPHILS 0.3 % (0-2); EOSINOPHILS 1.6 % (0-7); HEMATOCRIT 26.2 % (36.0-48.0); IMMATURE GRANULOCYTES 0.5 % (0-5); LYMPHOCYTES 16.4 % (15-50); MCHC 34.4 g/dL (31.0-37.0); MCV 87.3 fL (80.0-100.0); MEAN PLATELET VOLUME 10.1 fL (7.4-10.4); MONOCYTES 17.2 % (2-11); PLATELET COUNT 149 10x3/uL (130-400); RDW 16.4 % (11.5-14.5); WBC 10.5 10x3/uL (4.8-10.8)
[2016-08-12 05:12] LABS: ALBUMIN 2.3 g/dL (3.4-5.0); ANION GAP 13.3 mmol/L (8-16); BILIRUBIN - TOTAL 2.17 mg/dL (0.2-1.3); CALCIUM 8.2 mg/dL (8.5-10.1); CARBON DIOXIDE 17.1 mmol/L (21.0-32.0); CREATININE - SERUM 2.6 mg/dL (0.6-1.3); POTASSIUM - SERUM 3.4 mmol/L (3.5-5.1); PROTEIN - SERUM 5.3 g/dL (6.4-8.2)
[2016-08-12 07:00] VITALS: BP 96/60
[2016-08-12 12:32] VITALS: BP 107/63
--- NOTE | 2016-08-12 13:51 | NUR ---
CALLED PHARMACY, SPOKE WITH PABLO, PHARMACIST, ASKED HIM IF MVI(BANANA BAG) IS COMPATIBLE WITH THE ZOFRAN DRIP, HE STATED YES.
[2016-08-12 14:57] VITALS: BP 101/54
--- NOTE | 2016-08-12 18:26 | NUR ---
UNHOOKED BANANA BAG TUBING, FLUSHED IV LINE AND PUT BANANA BAG ON DELAY TO INFUSE FLAGYL.
[2016-08-12 20:00] VITALS: BP 92/49
--- NOTE | 2016-08-12 22:14 | NUR ---
PATIENT RESTING IN BED WITH EYES CLOSED AND NO VISIBLE SIGNS OF DISTRESS. BED IN LOWEST POSITION AND CALL LIGHT WITHIN REACH.
[2016-08-13] VITALS (7 sets, daily range): BP systolic 80–129; BP diastolic 45–75
[2016-08-13 06:18] LABS: BASOPHILS 0.2 % (0-2); EOSINOPHILS 0.5 % (0-7); HEMATOCRIT 24.5 % (36.0-48.0); HEMOGLOBIN 8.5 g/dL (12-16); IMMATURE GRANULOCYTES 0.5 % (0-5); LYMPHOCYTES 14.7 % (15-50); MCH 29.7 pg (26.0-34.0); MCHC 34.7 g/dL (31.0-37.0); MCV 85.7 fL (80.0-100.0); MEAN PLATELET VOLUME 10.2 fL (7.4-10.4); MONOCYTES 20.3 % (2-11); NEUTROPHILS 63.8 % (40-80); PLATELET COUNT 151 10x3/uL (130-400); RBC 2.86 10x6/uL (4.00-5.40); RDW 16.7 % (11.5-14.5); WBC 9.9 10x3/uL (4.8-10.8)
[2016-08-13 07:00] LABS: ALBUMIN 2.1 g/dL (3.4-5.0); BILIRUBIN - TOTAL 2.7 mg/dL (0.2-1.3); CARBON DIOXIDE 13.6 mmol/L (21.0-32.0); CREATININE - SERUM 2.4 mg/dL (0.6-1.3); POTASSIUM - SERUM 3.6 mmol/L (3.5-5.1); PROTEIN - SERUM 4.8 g/dL (6.4-8.2)
--- NOTE | 2016-08-13 07:15 | NUR ---
PATIENT IS AWAKE, ALERT AND ORIENTED X'S 4. RESPIRATIONS ARE EVEN AND UNLABORED ON ROOM AIR. PATIENT STATED SHE GOT UP AND FELT SHORT OF BREATH, BUT FEELS BETTER NOW. SHE STATED HER ABDOMEN IS HURTING 10/15. HER ABDOMEN IS TIGHT AND DISTENDED. BED IN LOWEST POSITION, CALL LIGHT IN REACH. BED RAILS UP X'S 2. PATIENT AGREED TO ALLOW ME TO PUT SCDS BACK ON.
--- NOTE | 2016-08-13 19:05 | NUR ---
WEB ARCHITECT CALLED ME TO ROOM STATED "THE PATIENT SAYS SHE CANNOT BREATH." WENT IN ROOM, PATIENT IN BED, HOB 40 DEGREES, FANNING HER WITH A NEWSPAPER PATIENT YELLING "I CAN'T BREATH! HELP ME! DON'T STOP FANNING ME." PUT PULSE OXIMETER ON FINGER, NO READING, TRIED A DIFFERENT FINGER ON OPPOSITE HAND, WENT TO GET NASAL CANNULA. CAME BACK, OXYGEN LEVEL 89%-92%. PATIENT BREATHING RAPIDLY, MOVING AROUND IN BED, YELLING. APPLIED OXYGEN VIA NASAL CANNULA AT 2L, PATIENT CAME UP TO 94% PATIENT STILL SAYING SHE FEELS SHORT OF BREATH. TURNED OXYGEN UP TO 3L/MIN. PATIENT'S HEART RATE 150. PATIENT STATED SHE FEELS A LITTLE BETTER. STEPPED OUT OF ROOM AND PAGED NELSON SR.
--- NOTE | 2016-08-13 19:45 | NUR ---
ATTEMPTED TO PLACE BRAGA CATHETER, UNSUCCESSFUL. PUT HOB AT 30 DEGREE ANGLE, PATIENT VERBALIZED FEELING SHORT OF BREATH, OXYGEN SATURATION 95% ON 3L/MIN OF OXYGEN, LIPS TURNING BLUE. PUT HOB BACK UP TO A 45 DEGREE ANGLE.
--- NOTE | 2016-08-13 20:05 | NUR ---
PATIENT STATED "HELP I CANNOT BREATH." CHECKED OXYGEN SATURATION, 100% ON 3L/MIN, LIPS TURNING BLUE AGAIN, FACE IS DUSKY COLOR. PAGED NELSON SR.
--- NOTE | 2016-08-13 20:45 | NUR ---
NOTIFIED NELSON SR OF PATIENT'S ABGS AND ECG.
--- NOTE | 2016-08-13 20:59 | NUR ---
PATIENT IS CALM, NO SIGNS OF DISTRESS AT THIS TIME. COLOR IS WNL.
--- NOTE | 2016-08-13 21:15 | NUR ---
NOTIFIED JAQUI DIAL THAT CONSULT FOR PULMONARY WAS CALLED, AND CARDIOLOGY NOT CALLED.
[2016-08-13 21:28] LABS: CKMB 0.6 U/L (0.0-3.6); CREATINE KINASE 26 UL (21-215)
--- NOTE | 2016-08-13 21:30 | NUR ---
WHILE I WAS RECEIVING REPORT AT 1900, PATIENT BECAME VERY SOB. LIPS WERE TURNING BLUE AND FACE DUSKY. PATIENT STATING, "I CAN'T BREATHE." DAY SHIFT RN, SHAHNAZ PRIETO, SPOKE WITH NELSON SR AND SURVEY OPERATIONS DIRECTOR RENAL. ALSO, CALLED PULMONARY CONSULT PER ORDER. PLACED TELEMETRY ON PATIENT AND ORDERED ABG'S, EKG, AND CARDIAC ENZYMES. (SEE DAY SHIFT RN'S NOTES.) PATIENT NOT EXHIBITING DISTRESS AT THIS TIME. COLOR BACK TO NORMAL. NIGHTTIME MEDS GIVEN. DILAUDID GIVEN FOR PAIN. IV TO RIGHT WRIST PATENT WITH NO REDNESS OR SWELLING. SCD'S ON. AT BEDSIDE. RX2. BED LOW. CALL LIGHT WITHIN REACH.
[2016-08-13 21:32] LABS: TROPONIN-I 0.124 ng/mL (0.000-0.060)
--- NOTE | 2016-08-13 23:00 | NUR ---
INSERTED 16FR BRAGA PER ORDER.
--- NOTE | 2016-08-14 01:40 | NUR ---
DILAUDID GIVEN FOR PAIN. WILL REASSESS.
[2016-08-14 02:53] LABS: CKMB 1.1 U/L (0.0-3.6); CREATINE KINASE 8 UL (21-215)
[2016-08-14 02:59] LABS: TROPONIN-I 0.404 ng/mL (0.000-0.060)
[2016-08-14 03:36] LABS: BASOPHILS 0.1 % (0-2); EOSINOPHILS 0 % (0-7); HEMATOCRIT 24.2 % (36.0-48.0); HEMOGLOBIN 8.3 g/dL (12-16); IMMATURE GRANULOCYTES 0.6 % (0-5); LYMPHOCYTES 9.9 % (15-50); MCH 29.6 pg (26.0-34.0); MCHC 34.3 g/dL (31.0-37.0); MCV 86.4 fL (80.0-100.0); MEAN PLATELET VOLUME 10.3 fL (7.4-10.4); MONOCYTES 14.2 % (2-11); NEUTROPHILS 75.2 % (40-80); PLATELET COUNT 158 10x3/uL (130-400); RDW 17.4 % (11.5-14.5); WBC 11.7 10x3/uL (4.8-10.8)
[2016-08-14 03:53] LABS: ANION GAP 13.9 mmol/L (8-16); CALCIUM 8.1 mg/dL (8.5-10.1); CREATININE - SERUM 2.5 mg/dL (0.6-1.3); POTASSIUM - SERUM 3.9 mmol/L (3.5-5.1)
[2016-08-14 04:00] VITALS: BP 81/51
[2016-08-14 04:10] LABS: INR 2.51 (0.85-1.17); PROTIME 26.9 SECONDS (11.6-15.0)
--- NOTE | 2016-08-14 05:30 | NUR ---
DILAUDID GIVEN FOR PAIN. PATIENT AWAKE AND WATCHING THE NEWS. STATES SHE "FEELS MUCH BETTER THAN LASTNIGHT."
--- NOTE | 2016-08-14 07:40 | NUR ---
SLIGHTLY RESTLESS, WANTS SOMETHING FOR ANXIETY, ASSESSMENT COMPLETE, BED LOWEST POSITION, CALL LIGHT IN REACH, WILL CONTINUE TO MONITOR
[2016-08-14 07:59] VITALS: BP 72/42
[2016-08-14 09:01] LABS: CKMB 1.1 U/L (0.0-3.6); CREATINE KINASE 8 UL (21-215); TROPONIN-I 0.291 ng/mL (0.000-0.060)
--- NOTE | 2016-08-14 09:05 | NUR ---
PATIENT IN LOW CLEMENT POSITION ALERT AND RESTING QUIETLY. RESPIRATIONS EVEN AND UNLABORED. FAMILY AT BEDSIDE. SIDE RAILS UP X2. BED IN LOW POSITION. CALL LIGHT IN REACH.
[2016-08-14 11:38] VITALS: BP 81/50
[2016-08-14 15:48] VITALS: BP 72/45
[2016-08-14 20:00] VITALS: BP 89/45
--- NOTE | 2016-08-14 20:00 | NUR ---
ASSESSMENT PER FLOWSHEET. IV PATENT RT WRIST OF BICARB INFUSING AT 50CC'S/HR BRAGA TO BS DRAINAGE WITH ROB COLORED URINE. TELM. SHOWS ST WITH HR 110. ABDOMEN DISTENDED FAINT BS. O2 ON 3 L/M PER NC. HOB UP 35 DEGREES. SR UP X2 CALL LIGHT WITHIN REACH BOX ALARM ON.
--- NOTE | 2016-08-14 21:15 | NUR ---
MEDS GIVEN PER JUN. RESTING QUIETLY RESPIRATIONS WITH EASE AND UNLABORED.ASKING ABOUT WHEN HER WILL BE HERE.
--- NOTE | 2016-08-14 22:30 | NUR ---
CALLING OUT FOR HER . ASSURED HER HE WOULD BE HERE SOON.
--- NOTE | 2016-08-14 23:15 | NUR ---
PT'S SPOUSE HERE PATIENT BECOMING VERY AGITATED AND C/O PAIN IN ABDOMEN. DILAUDID 0.5MG IVP GIVEN FOR PAIN CONTROL.
--- NOTE | 2016-08-14 23:34 | NUR ---
PATIENT BECOMING VERY ANXIOUS AND STATING CAN'T BREATHE CALLED RT TECH HERE. ATTEMPTS MADE TO TRY AND CALM HER NOW WITH PURSE LIP BREATHING KLONOPIN TAB ONE PO GIVEN FOR ANXIETY. PLACED ON CONTINUOUS PULSE OX SHOWS HR 150.
--- NOTE | 2016-08-14 23:50 | NUR ---
PATIENT STARTING TO CALM DOWN HR DECREASING TO 120. PT RESTING SPOUSE AT BEDSIDE. RESPIRATIONS IMPROVING. REPOSITIONED IN BED.
[2016-08-15] VITALS (7 sets, daily range): BP systolic 64–87; BP diastolic 38–52
--- NOTE | 2016-08-15 | NUR ---
HR DOWN TO 110. BREATHING HAS IMPROVED. EYES CLOSED RESPIRATION WITH EASE AND THIS TIME SPOUSE AT BEDSIDE.
--- NOTE | 2016-08-15 02:00 | NUR ---
PT NPO FOR PARACENTESIS IN AM.
--- NOTE | 2016-08-15 05:08 | NUR ---
EYES CLOSED RESPIRATIONS WITH EASE AND UNLABORED. ABG'S WERE DONE EARILIER.
[2016-08-15 05:34] LABS: BASOPHILS 0.1 % (0-2); EOSINOPHILS 0 % (0-7); HEMOGLOBIN 8.7 g/dL (12-16); IMMATURE GRANULOCYTES 0.6 % (0-5); LYMPHOCYTES 10.1 % (15-50); MCHC 34.8 g/dL (31.0-37.0); MCV 86.2 fL (80.0-100.0); MEAN PLATELET VOLUME 9.9 fL (7.4-10.4); MONOCYTES 10.7 % (2-11); NEUTROPHILS 78.5 % (40-80); PLATELET COUNT 147 10x3/uL (130-400); RDW 17.5 % (11.5-14.5)
[2016-08-15 05:54] LABS: INR 2.58 (0.85-1.17); PROTIME 27.9 SECONDS (11.6-15.0)
[2016-08-15 05:55] LABS: APTT 48.1 SECONDS (22.8-39.4)
[2016-08-15 06:14] LABS: WBC 15.4 10x3/uL (4.8-10.8)
[2016-08-15 06:20] LABS: ALBUMIN 1.9 g/dL (3.4-5.0); BILIRUBIN - TOTAL 3.3 mg/dL (0.2-1.3); CALCIUM 8.2 mg/dL (8.5-10.1); CARBON DIOXIDE 15.8 mmol/L (21.0-32.0); CREATININE - SERUM 2.6 mg/dL (0.6-1.3); MAGNESIUM - SERUM 2.8 mg/dL (1.8-2.4); PHOSPHOROUS 2.4 mg/dL (2.5-4.9)
[2016-08-15 06:26] LABS: ANION GAP 17.5 mmol/L (8-16); POTASSIUM - SERUM 3.3 mmol/L (3.5-5.1)
[2016-08-15 06:27] LABS: TROPONIN-I 0.16 ng/mL (0.000-0.060)
--- NOTE | 2016-08-15 07:30 | NUR ---
RECIEVED PT DURING WALKING ROUNDS. PT RESTING IN BED WITH COMPLAINTS OF PAIN OF A 10 ON A SCALE OF 1-10. MEDICATION TO BE ADMINISTERED PER ORDER. ASSESSMENT DONE PER FLOWSHEET. BED IN LOW POSITION AND CALL LIGHT WITHIN REACH. WILL CONTINUE TO MONITOR.
--- NOTE | 2016-08-15 08:18 | NUR ---
SPO2 ON PRESENT SETTING, 3LPM, WHILE SITTING SUPINE 99%. SPO2 ON 3LPM WHILE STANDING 99%
--- NOTE | 2016-08-15 09:43 | CN ---
PATIENT NAME:KRYS GOSS MEDICAL RECORD: [id number] : 61 LOCATION:[facility] ADMIT DATE: 08/03/16 ACCOUNT: [id number] CONSULTING PHYSICIAN: NOHEMY MI MD REFERRING PHYSICIAN: SINTIA OWENS M.D. DATE OF CONSULTATION: 08/08/2016 Consultation Note Addendum CHIEF COMPLAINT: I was asked to see the patient due to abdominal pain. HISTORY OF PRESENT ILLNESS: The patient has abdominal distention. I have personally reviewed her CT images. I have personally reviewed the last CT report. She is planning to undergo a repeat paracentesis. The patient states she has cirrhosis due to alcohol abuse. Currently, she is without symptoms other than some mild dyspnea. Also, some mild orthopnea. She is not having any abdominal pain. No abdominal tenderness. Nothing aggravates other than lying flat. Nothing alleviates other than sitting up. This is a consultation note addendum. For the typed portion of the consult note including the past medical and surgical history, allergies, social history, as well as current medications, please see the chart. REVIEW OF SYSTEMS: No nausea, no vomiting. The review of systems is negative other than as is described above. PHYSICAL EXAMINATION: GENERAL: The patient appears acutely ill. Also appears chronically ill. VITAL SIGNS: Reviewed. The entire physical examination was performed in the presence of a female nurse. HEAD: External ears appeared normal. There is slight temporal wasting. NECK: Trachea is midline. CHEST: No intercostal retractions. Decreased breath sounds in the bases. ABDOMEN: Distended. Protuberant. INTEGUMENT: There is an intertriginous rash. BACK: Mild thoracic kyphosis. LYMPHATICS: No lymphangitic streaking of the exposed extremities. PSYCHIATRIC: Normal affect. NEUROLOGIC: Nonfocal, no lethargy. The patient answers questions appropriately, moves all extremities well. IMPRESSION: Symptomatic ascites. PLAN: I agree with paracentesis. The patient does not appear to have an urgent or emergent general surgical issue. I will see the patient on a p.r.n. basis. TRANSINT:[id number] Voice Confirmation ID: [id number] DOCUMENT ID: [id number] CONSULT REPORT [id number] KRYS GOSS NOHEMY MI MD at 0943 CC: [id number] DICTATION DATE: 08/08/16 183 TOP EXECUTIVE: 08/09/16 0024 ADM IN [facility] [address] [id number]
--- NOTE | 2016-08-15 12:17 | NUR ---
PT FIRST UNIT PLASMA STARTED. SEE VITAL SIGNS. STARTED ITCHING AT IV INSERTION SITE AND SKIN RED. TEMP INCREASED. NO SOB NOTED OR VOICED. TRANSFUSION STOPPED. URINE AND REST OF TRANSFUSION TO LAB FOR REACTION. IV RESITED X 3 STICKS TO LEFT UPPER ARM AND NS STARTED. MEDS GIVEN CALL LIGHT IN REACH
--- NOTE | 2016-08-15 12:20 | NUR ---
REACTION NOTED DURING TRANSFUSION OF FFP, PLEASE REFER TO LIONEL MCCONNELL RN NURSES NOTE.
[2016-08-15 14:12] LABS: APPEARANCE SLT CLOUDY (CLEAR); BILIRUBIN NEGATIVE (NEGATIVE); COLOR AMBER (YELLOW); GLUCOSE NEGATIVE (NEGATIVE); KETONE NEGATIVE (NEGATIVE); LEUKOCYTE ESTERASE TRACE (NEGATIVE); NITRITE NEGATIVE (NEGATIVE); PROTEIN TRACE mg/dL (NEGATIVE); SPECIFIC GRAVITY 1.015 (1.005-1.020); UROBILINOGEN NORMAL (NORMAL)
[2016-08-15 14:13] LABS: BACTERIA MODERATE /hpf (NONE SEEN); EPITHELIAL CELLS 0-5 /hpf (0-5); MUCUS <1+ /lpf (NONE SEEN); WHITE CELLS - URINE 0-5 /hpf (0-5)
[2016-08-15 17:04] LABS: INR 2.57 (0.85-1.17); PROTIME 27.8 SECONDS (11.6-15.0)
--- NOTE | 2016-08-15 21:15 | NUR ---
UPDATE CALLED TO DR. TODD, NEW ORDERS RECIEVED,
--- NOTE | 2016-08-15 22:30 | NUR ---
UPON INITIAL ASSESSMENT PATIENT WAS SITTING UP IN BED WITH NO DISTRESS NOTED. SHE STATED SHE WAS IN PAIN AND GETTING ANXIOUS. AT ABOUT 2000 HER HEART RATE JUMPED UP TO 150. HER BREATHING WAS VERY LABORED AND SHE BECAME CYANOIC. CALLED ICU NURSE SHAINA TO EVALUATE PATIENT. SHE SPOKE WITH DR. TODD WHO ORDERED BIPAP NEEDED AND A ONE TIME OF 80MG LASIX. LASIX GIVEN. PATIENT PUT ON BIPAP AND BECAME VERY AGITATED. WOULD NOT KEEP FROM PULLING AT MASK. PATIENT PUT IN SOFT WRIST RESTRAINTS PER ORDER.
[2016-08-16] VITALS (56 sets, daily range): BP systolic 78–145; BP diastolic 42–107
--- NOTE | 2016-08-16 00:30 | NUR ---
RESTRAINT EVAL COMPLETE. O2 SAT 97%. PATIENT HAS CALMED DOWNAND IS COHERENT. STATES THAT SHE NEEDS A BREAK FROM THE MASK AND THAT SHE WILL LEAVE THE OXYMIZER ON. RESTRAINTS REMOVED. BIPAP REMOVED AND O2 PUT AT 15L VIA OXYMIZER.
[2016-08-16 06:30] LABS: BASOPHILS 0.2 % (0-2); EOSINOPHILS 0.1 % (0-7); HEMATOCRIT 24.9 % (36.0-48.0); HEMOGLOBIN 8.3 g/dL (12-16); IMMATURE GRANULOCYTES 0.7 % (0-5); MCH 28.7 pg (26.0-34.0); MCHC 33.3 g/dL (31.0-37.0); MCV 86.2 fL (80.0-100.0); MEAN PLATELET VOLUME 10.6 fL (7.4-10.4); MONOCYTES 8.3 % (2-11); NEUTROPHILS 80.7 % (40-80); PLATELET COUNT 134 10x3/uL (130-400); RBC 2.89 10x6/uL (4.00-5.40); RDW 17.4 % (11.5-14.5)
[2016-08-16 06:46] LABS: APTT 47.4 SECONDS (22.8-39.4); INR 2.59 (0.85-1.17)
--- NOTE | 2016-08-16 07:10 | NUR ---
REPORT RECEIVED FROM HEADSTART TEACHER NURSE. CALL LIGHT IN REACH.
--- NOTE | 2016-08-16 07:15 | NUR ---
REPORT RECEIVED FROM ALPINE PATROLLER NURSE. CALL LIGHT IN REACH.
[2016-08-16 08:24] LABS: ANION GAP 15.3 mmol/L (8-16); CALCIUM 8.4 mg/dL (8.5-10.1); CARBON DIOXIDE 18.4 mmol/L (21.0-32.0); POTASSIUM - SERUM 3.7 mmol/L (3.5-5.1); THYROID STIMULATING HORMONE 1.05 uIU/mL (0.36-3.74)
[2016-08-16 08:26] LABS: PHOSPHOROUS 3.2 mg/dL (2.5-4.9)
--- NOTE | 2016-08-16 08:29 | NUR ---
ASSESSMENT COMPLETED. REFUSES SCDs. DISPOSABLE BED ALARM ON. ORDER FOR FFP. SPOKE WITH DR. WARNER ABOUT PREMED ORDERS D/T REACTION TO FFP YESTERDAY. ORDER FOR ICU TRANSFER. NOTIFIED FLAT FINISHER. CALL LIGHT IN REACH. WILL CONTINUE WITH PLAN OF CARE.
--- NOTE | 2016-08-16 08:38 | NUR ---
ASSESSMENT COMPLETED. VSS. LUNGS CLEAR AT THIS TIME. NO DISTRESS NOTED. FATHER IN ROOM. CALL LIGHT IN REACH. WILL CONTINUE WITH PLAN OF CARE.
--- NOTE | 2016-08-16 09:04 | NUR ---
PREMED ORDERS ADMINISTERED PER ORDER.
--- NOTE | 2016-08-16 09:40 | NUR ---
FFP UNIT 1 INITIATED @ 999 CC/HR VIA PUMP. WILL SIT IN ROOM AND MONITOR INFUSION OF BOTH UNITS TO MAKE SURE THERE ISN'T ANY REACTION. AND MOTHER ALSO IN ROOM AT THIS TIME. CALL LIGHT IN REACH.
--- NOTE | 2016-08-16 10:00 | NUR ---
UNIT 1 OF FFP COMPLETED AND UNIT 2 IMMEDIATELY STARTED. VSS AT THIS TIME. NO REACTION FROM FIRST UNIT. WILL CONTINUE TO STAY IN ROOM AND MONITOR PATIENT CLOSELY.
--- NOTE | 2016-08-16 10:23 | NUR ---
2ND UNIT OF FFP COMPLETED.
--- NOTE | 2016-08-16 10:36 | NUR ---
REPORT CALLED TO JAQUI SMALL, IN ICU.
--- NOTE | 2016-08-16 10:50 | NUR ---
TRANSFERRED TO ROOM 2312 VIA BED.
--- NOTE | 2016-08-16 13:02 | NUR ---
1100 PT RECIEVED IN THE ICU VIA BED FROM FLOOR.. PT IS AWAKE AND WILL ANSWER SIMPLE QUESTIOINS APPROPRIATLY BUT IS NOT SURE OF TIME AND SITUATION.. PT IS WITH OXIMIZER O2 SHE WILL NOT LEAVE THE CANNULA IN PLACE.. SOFT WRIST RESTRAINTS ARE APPLIED AT THIS TIME.. THERE IS MULTIPLE SKIN TEARS AND BRUISDING ON ARMS BILATERALLY.. BRAGA CATH IN PLACE,,, 1200 FAMILY IN TO SEE PT AND Ana Maria HUTSON AND HARRIS IN TO SEE PT .. ORDERS ARE RECIEVED AFTER UPDATE GIVEN.. 1240 DR FERNANDEZ CALLED AND CONFIRMED THE PICC LINE PLACEMENT... OK FOR THE MIDLINE.. [facility] ROOM AND ATTEMPTING TO PLACE CATH..
--- NOTE | 2016-08-16 13:30 | NUR ---
[address] IN PL[address].. NS STARTED IN MIDLINE DOPAMINE INITIATED IN MIDLINE PER ORDER ...
[2016-08-16 13:38] LABS: INR 2.33 (0.85-1.17); PROTIME 25.6 SECONDS (11.6-15.0)
--- NOTE | 2016-08-16 13:40 | NUR ---
NUTRITION MONITORING & EVAL CHART REVIEWED. PT NOW IN ICU. NPO. NOW ASSESSED WITH SEVERE MALNUTRITION OF ACUTE ILLNESS AEB 1)=/< 50% INTAKE EST ENERGY NEEDS =/> 5 DAYS 2)REDUCED ASBESTOS HANDLER STRENGTH RECOMMEND STARTING NUTRITION SUPPORT WHEN MEDICALLY FEASIBLE. RD FOLLOWING
--- NOTE | 2016-08-16 15:22 | NUR ---
1400 PT BP IS 100 SYSTOLIC AT THIS TIME.. REMAINS WITHOUT OTHER CHANGES.. VANCOMYCIN INFUSING.. 1500 VISITOR AT THE BEDSIDE.. LAB IN TO DRAW AMMMONIA LEVEL .. ATTEMPT X3 AND UNABLE TO OBTAIN SPECIMEN.. AND UNABLE TO DRAW FROM THE MIDLINE AT THIS TIME DUE TO DOPAMINE INFUSING..
--- NOTE | 2016-08-16 15:58 | NUR ---
1550 DOPAMINE TITRATED PER ORDER.. HR 133 AT THIS TIME..
--- NOTE | 2016-08-16 18:03 | NUR ---
1630 DOPAMINE INFUSING ATT 2.5 MCG AT THIS TIME AND HR /BP WITHIN PARAMETERS.. 1800 FAMILY IN TO SEE PT .. UPDATE GIVEN..
--- NOTE | 2016-08-16 19:00 | NUR ---
ASSESSMENT COMPLETED. SEE FLOW SHEETS FOR ALL FINDINGS. PT AROUSES WITH VOICES, FOLLOWS SIMPLE QUESTIONS BUT FALLS EASILY BACK TO SLEEP.ST ON CM WITH HR TO 112. LUNG SOUNDS WHEEZING TO ULB WITH DIMINISHED TO LLB, UNLABORED. LEFT UA MIDLINE INTACT INFUSING DOPAMINE AT 2.5MCG AND NS AT 50ML/HR VIA PUMP.BRAGA INTACT BY GRAVITY WITH ROB COLOR DRAINAGE TO BAG. PPP. CALL LIGHT IN REACH. WILL CONT TO MONITOR.
--- NOTE | 2016-08-16 21:00 | NUR ---
FAMILY AT BEDSIDE. UPDATED AND QUESTIONS ANSWERED.
--- NOTE | 2016-08-16 23:00 | NUR ---
REASSESSMENT COMPLETED. SEE FLOW SHEETS FOR ALL FINDINGS. ST ON MONITOR. CONT DOPAMINE AT 2.5MCG PER ORDER. NO ACUTE CHANGES IN PT'S STATUS NOTED. WILL CONT TO MONITOR.
[2016-08-17] VITALS (70 sets, daily range): BP systolic 85–117; BP diastolic 50–77
--- NOTE | 2016-08-17 01:00 | NUR ---
PT RESTING QUIETLY WITHOUT DISTRESS. NO ACUTE CHANGES NOTED ON PT'S CONDITION. VSS. REPOSITIONED FOR COMFORT. PILLOWS IN USE FOR SUPPORT. HEELS ELEVATED. CALL LIGHT IN REACH. CPOC.
--- NOTE | 2016-08-17 03:00 | NUR ---
REASSESSMENT COMPLETED. SEE FLOW SHEETS FOR ALL FINDINGS. NO ACUTE SIGNS OF DISTRESS NOTED AT THS TIME. ST ON CM. CONT DOPAMINE AT 2.5MCG PER ORDER.CPOC
[2016-08-17 05:51] LABS: BASOPHILS 0.1 % (0-2); EOSINOPHILS 0 % (0-7); HEMATOCRIT 25.4 % (36.0-48.0); HEMOGLOBIN 8.7 g/dL (12-16); IMMATURE GRANULOCYTES 0.5 % (0-5); LYMPHOCYTES 8.3 % (15-50); MCH 29.3 pg (26.0-34.0); MCHC 34.3 g/dL (31.0-37.0); MCV 85.5 fL (80.0-100.0); MEAN PLATELET VOLUME 10.7 fL (7.4-10.4); MONOCYTES 4.9 % (2-11); NEUTROPHILS 86.2 % (40-80); PLATELET COUNT 120 10x3/uL (130-400); RBC 2.97 10x6/uL (4.00-5.40); RDW 17.6 % (11.5-14.5); WBC 20.2 10x3/uL (4.8-10.8)
[2016-08-17 06:01] LABS: ALBUMIN 2.1 g/dL (3.4-5.0); ANION GAP 14.4 mmol/L (8-16); BILIRUBIN - TOTAL 3.5 mg/dL (0.2-1.3); CALCIUM 8.7 mg/dL (8.5-10.1); CARBON DIOXIDE 20.1 mmol/L (21.0-32.0); CREATININE - SERUM 3.3 mg/dL (0.6-1.3); PROTEIN - SERUM 5.6 g/dL (6.4-8.2); VANCOMYCIN - RANDOM 12.2 ug/mL (10.0-20.0)
[2016-08-17 06:02] LABS: PHOSPHOROUS 4.8 mg/dL (2.5-4.9); POTASSIUM - SERUM 4.5 mmol/L (3.5-5.1)
--- NOTE | 2016-08-17 07:55 | NUR ---
NOTED LAB HAD BEEN UNABLE TO DRAW BLOOD ON PT, MULTIPLE LAB TECHS HAD TRIED WITH NO SUCCESS. CALLED DR FERNANDEZ TO NOTIFY AND TO SEE IF CAN GET ORDER FOR CENTRAL LINE. NOTED ORDER TO CONSULT SURGERY FOR TRIALYSIS LINE.
--- NOTE | 2016-08-17 07:57 | NUR ---
NOTIFIED DR OSEGUERA WHO IS PBX INSPECTOR FOR DR MI AT THIS TIME OF NEED FOR TRIALYSIS LINE.
--- NOTE | 2016-08-17 08:18 | NUR ---
LYING IN BED AT THIS TIME. NO ACUTE DISTRESS NOTED. PT IS CONFUSED. REORIENTATION PROVIDED. CALLED PTS AND RECIEVE PHONE CONSENT FOR TRIALYSIS LINE PLACEMENT. CONSENT VERIFIED BY A SECOND NURSE WELL. WILL CONTINUE PLAN OF CARE.
--- NOTE | 2016-08-17 09:10 | NUR ---
FAMILY AT BEDSIDE. UPDATE GIVEN. NOTED PT COMPLAINT OF DISCOMFORT, AFTER REPOSITIONING PT STATED SHE WAS NOW COMFORTABLE. WILL CONTINUE PLAN OF CARE.
--- NOTE | 2016-08-17 09:28 | NUR ---
DR MONTESINOS HERE ASSESSING PT, ORDERS PLACED. NO ACUTE DISTRESS NOTED. WILL CONTINUE PLAN OF CARE.
--- NOTE | 2016-08-17 11:26 | NUR ---
DR OSEGUERA JUST PLACED TRIALYSIS LINE TO RIGHT JUGULAR. STAT CHEST XRAY ORDERED TO VERIFY PLACEMENT. WILL CONTINUE PLAN OF CARE.
[2016-08-17 13:28] LABS: APTT 48.6 SECONDS (22.8-39.4)
[2016-08-17 13:33] LABS: INR 2.19 (0.85-1.17); PROTIME 24.4 SECONDS (11.6-15.0)
--- NOTE | 2016-08-17 13:56 | NUR ---
SPOKE WITH MECHE FROM IR NOTED THEY STATED PER DR HUTSON IN RELATED TO BLOOD COAGULATION RESULTS AND STATED THEY WOULD WAIT UNTIL SATURDAY FOR PARACENTESIS/THORACENTESIS. WILL CONTINUE PLAN OF CARE.
--- NOTE | 2016-08-17 14:33 | NUR ---
NOTED PT COMPLANT OF DISCOMFORT WELL ASKED TO EAT. ATTEMPTED TO CALL DR WARNER TO SEE IF PT CAN GET ANYTHING FOR DISCOMFORT WELL A POSSIBLE DIET ORDER. WAITING FOR CALLBACK.
--- NOTE | 2016-08-17 16:36 | EC ---
PATIENT:KRYS GOSS DATE OF SERVICE: 08/03/16 SEX: F MEDICAL RECORD: [id number] DATE OF : 61 LOCATION:[facility] AGE OF PATIENT: 51 ADMISSION DATE: 08/03/16 REFERRING PHYSICIAN: INTERPRETING PHYSICIAN: LEONARDO BAUER MD ECHOCARDIOGRAM REPORT ECHO CHARGES 4 ECHO COMPLETE CLINICAL DIAGNOSIS: TACHYCARDIA ECHOCARDIOGRAPHIC MEASUREMENTS (adult normal given) AC root (d.<3.7cm) 3.4 LV Septum d (<1.2 cm> 1.0 Valve Excursion 1.9 LV Septum (systole) 1.2 Left Atria (s.<4.0cm> 3.9 LVPW d(<1.2cm) 1.6 RV (d.<2.3cm) 3.8 LVPW (sytole) 1.7 LV diastole(<5.6CM) 5.0 MV E-F(>70mm/sec) LV systole 3.8 LVOT Diameter 1.7 MV exc.(>10mm) 1.9 Est.ejection fraction (50-75%) Pericardial Effusion N DOPPLER: LVIT A 56.0 E 101 LA RVSP 19 LVOT 129 AOP1/2T Asc. Ao 156 RVOT 82 RA PA 132 AV Gradient Peak 9.73 AV Mean 4.58 AV Area 1.7 MV Gradient Peak 5.12 MV Mean 1.96 MV Area COMMENTS: Piping Supervisor: Laquita AVELAR Automotive Parts Advisor:Jim Bauer TAPE# PACS DATE OF SERVICE: 08/14/2016 Echocardiogram FINDINGS: 1. Left ventricular chamber size is within normal limits. Left ventricular systolic function is normal. Overall ejection fraction estimated at 55%. 2. Left atrium, right atrium, and right ventricular chamber sizes are within normal limits. 3. Valvular structures have normal structure and motion. ECHOCARDIOGRAM REPORT [id number] KRYS GOSS 4. Doppler interrogation reveals mild mitral regurgitation, mild tricuspid regurgitation, no other valvular insufficiency or stenosis. 5. Large pleural effusion is present, but no pericardial effusion is present. TRANSINT:[id number] Voice Confirmation ID: [id number] DOCUMENT ID: [id number] LEONARDO BAUER MD at 8031 CC: [id number] DICTATION DATE: 08/14/16 1650 SWEEPING COMPOUND BLENDER: 08/15/16 0919 ADM IN [facility] [address] [id number]
--- NOTE | 2016-08-17 16:36 | CN ---
PATIENT NAME:KRYS MEADOWS MEDICAL RECORD: [id number] : 61 LOCATION:[facility] ADMIT DATE: 08/03/16 ACCOUNT: [id number] CONSULTING PHYSICIAN: LEONARDO HALLMAN MD REFERRING PHYSICIAN: SINTIA OWENS M.D. DATE OF CONSULTATION: 08/14/2016 Cardiology Consultation DIAGNOSES: 1. Elevated troponin. 2. Acute kidney injury. 3. Esophageal varices. 4. Anemia. 5. Alcoholic cirrhosis. 6. Ascites. HISTORY OF PRESENT ILLNESS: Mrs. Meadows presents with complications from her alcoholic cirrhosis and ascites, had been followed by GI. She has had episodes of tachycardia to 126 range, systolic blood pressures in the 80 range, oftentimes. Her EKG has no acute ST-T abnormalities. She has a left bundle branch block. She has been told that she has a left bundle branch block in the past and has seen a physician scribe for this before. No treatment. She has not had a history of coronary artery disease. She has not had any chest pain or chest discomfort. She has no ST-T changes. PHYSICAL EXAMINATION: GENERAL APPEARANCE: Well-nourished, well-developed, appears stated age. Level of distress, comfortable. PSYCHIATRIC: Mental status, alert, normal affect. Orientation, oriented to time, place and person. EYES: Lids and conjunctiva, noninjected. No discharge, no pallor. ENT: Lips, teeth, gums, normal dentition. Oropharynx, no cyanosis, no pallor. NECK: Carotid arteries, bilateral normal upstroke, no bruits, no thrills. JUGULAR VEINS: No jugular venous pressure or distention. CERVICAL LYMPH NODES: Nontender, nonenlarged. THYROID: Not enlarged. Nontender. No nodules. LUNGS: Respiratory effort, unlabored. CHEST: Normal curvature. No thoracic deformity. No chest wall tenderness. Percussion, resonant. Auscultation, clear. No wheezes, no rales, no rhonchi. CARDIOVASCULAR: Precordial exam, nondisplaced. No heaves or pericardial thrills. Rate and rhythm, regular. Heart sounds, normal S1, normal S2. No S3, no gallop, no rub. Systolic murmur, not heard. Diastolic murmur, not heard. EXTREMITIES: No cyanosis, no edema. Peripheral pulses, full and equal in all extremities, except as noted. No bruits appreciated. ABDOMEN: Soft, nondistended. Normal aorta. No bruit. Nontender. No masses. Liver, nontender, no hepatomegaly. Spleen, nontender, no splenomegaly. MUSCULOSKELETAL: No joint tenderness. No joint swelling. No erythema. NEUROLOGICAL: Normal gait, normal strength, normal tone. SKIN: Warm and dry. REVIEW OF SYSTEMS: The patient reports easy bruising but reports no swollen glands. The patient reports no fever, no night sweats, no significant weight gain, no significant weight loss. No significant exercise tolerance. The patient reports no dry eyes, no irritation, no vision change. Patient reports CONSULT REPORT [id number] KRYS MEADOWS no difficulty hearing and no ear pain. Patient reports no frequent nose bleeds or nose and sinus problems. Patient reports on arm pain on exertion. No shortness of breath while lying down. No history of heart murmur. Patient reports no cough, no wheezing or coughing up blood. Patient reports no abdominal pain, no vomiting. Normal appetite. No diarrhea and not vomiting blood. No nausea and no constipation. Patient reports no incontinence. No difficulty urinating. No hematuria. No increased frequency. Patient reports no muscle aches. No weakness, no arthralgias, no back pain. No swelling of the extremities. Patient reports no abnormal mole, no jaundice, no rashes. Reports no loss of consciousness. No weakness and no numbness. No seizures, dizziness, or headaches. The patient reports no depression, no sleep disturbance, feeling safe in a relationship and no alcohol abuse. Patient reports on fatigue. Reports no runny nose or sinus pressure. No itching, no hives, and no frequent sneezing. OVERALL IMPRESSION: Most likely is demand ischemia, the tachycardia is physiologic secondary to the ascites and multiple other medical problems. This time, we will get an echocardiogram. No other cardiac workup or treatment is necessary. TRANSINT:[id number] Voice Confirmation ID: [id number] DOCUMENT ID: [id number] LEONARDO HALLMAN MD at 1636 CC: [id number] DICTATION DATE: 08/14/16921 C SOFTWARE DEVELOPER: 08/14/16 1651 ADM IN [id number] [place] [address]
--- NOTE | 2016-08-17 17:01 | NUR ---
STILL NOTED CONFUSION. REORIENTATION PROVIDED FREQUENTLY. ALSO NOTED PT COMPLAINT OF DISCOFORT TO ABDOMEN. PRN MORPHINE ADMIN AT THIS TIME. WILL CONTINUE PLAN OF CARE.
--- NOTE | 2016-08-17 18:32 | NUR ---
FAMILY AT BEDSIDE. NO ACUTE DISTRESS NOTED. WILL CONTINUE PLAN OF CARE.
--- NOTE | 2016-08-17 19:30 | NUR ---
RECEIVED CARE OF PT, ASSESSMENT PER FLOWSHEET. PT ORIENTED TO SELF AND PLACE ONLY, ON 15 L OXI, SAT IN UPPER 90'S. HR ST ON CM, PPP, ABDOMEN DISTENDED, FIRM AND TENDER TO PALP, HYPO BS X 4, BRAGA CATH PATENT WITH CONCENTRATED URINE IN TUBING, BILATERAL SOFT WRIST RESTRAINTS INTACT, GTT'S PER FLOWSHEET.
--- NOTE | 2016-08-17 21:09 | NUR ---
PT IN FOR VISITATION, ALL QUESTIONS ANSWERED.
[2016-08-18] VITALS (50 sets, daily range): BP systolic 80–127; BP diastolic 42–82
--- NOTE | 2016-08-18 01:23 | NUR ---
WATER PROVIDED PER REQUEST, PT REPOSITIONED FOR COMFORT SUPPORTED WITH PILLOWS, BED LOW, SR UP X 2.
[2016-08-18 03:53] LABS: BASOPHILS 0 % (0-2); EOSINOPHILS 0 % (0-7); HEMATOCRIT 24.6 % (36.0-48.0); HEMOGLOBIN 8.6 g/dL (12-16); IMMATURE GRANULOCYTES 0.5 % (0-5); LYMPHOCYTES 8.5 % (15-50); MCH 29.8 pg (26.0-34.0); MCV 85.1 fL (80.0-100.0); MEAN PLATELET VOLUME 9.9 fL (7.4-10.4); MONOCYTES 3.3 % (2-11); NEUTROPHILS 87.7 % (40-80); PLATELET COUNT 158 10x3/uL (130-400); RBC 2.89 10x6/uL (4.00-5.40); RDW 17.4 % (11.5-14.5); WBC 21.8 10x3/uL (4.8-10.8)
[2016-08-18 04:08] LABS: ANION GAP 12.2 mmol/L (8-16); CALCIUM 9.1 mg/dL (8.5-10.1); CARBON DIOXIDE 20.7 mmol/L (21.0-32.0); CREATININE - SERUM 3.6 mg/dL (0.6-1.3); PHOSPHOROUS 5.1 mg/dL (2.5-4.9); POTASSIUM - SERUM 3.9 mmol/L (3.5-5.1)
[2016-08-18 04:18] LABS: INR 2.26 (0.85-1.17); PROTIME 25.1 SECONDS (11.6-15.0)
--- NOTE | 2016-08-18 04:35 | NUR ---
DR FERNANDEZ NOTIFIED OF HCT ON AM LAB, OK'D TO GIVE 1 UNIT OF PRBC'S PER ORDER.
--- NOTE | 2016-08-18 05:06 | NUR ---
AM LABS REVIEWED, NOTHING TO TREAT PER ELECTROLYTE PROTOCOL.
--- NOTE | 2016-08-18 11:00 | NUR ---
NO CHANGE NOTEDD
--- NOTE | 2016-08-18 15:00 | NUR ---
NO CHANGE NOTED
--- NOTE | 2016-08-18 19:30 | NUR ---
RESUMED CARE OF PT, ASSESSMENT PER FLOWSHEET. PT ORIENTED TO SELF ONLY, DOES FOLLOW COMMANDS, 1+ EDEMA NOTED TO ALL EXTREMITIES, ABD TIGHT AND DISTENDED, TENDER TO PALP, BS HYPO X 4, BRAGA CATH PATENT WITH CONCENTRATED URINE IN TUBING, PPP, HR SR AT A RATE OF 99 ON CM, RHONCHI AND EXP WHEEZES AUSCULTATED, O2 VIA OXIMIZER. LEVOPHED GTT INCREASED PER MD ORDER, WILL MONITOR CLOSELY.
--- NOTE | 2016-08-18 20:15 | NUR ---
DR FERNANDEZ PAGED REGARDING CHANGE IN PT CONDITION, LEVOPHED GTT CURRENTLY AT 15 MCG/MIN. ORDERS RECEIVED.
--- NOTE | 2016-08-18 21:20 | NUR ---
PT AND MOTHER IN FOR VISITATION, UPDATE PROVIDED, AND ALL QUESTIONS ANSWERED.
[2016-08-18 21:47] LABS: HEMATOCRIT 28.2 % (36.0-48.0); HEMOGLOBIN 9.8 g/dL (12-16)
--- NOTE | 2016-08-18 23:15 | NUR ---
REASSESSMENT PER FLOWSHEET, PT POSITIONED FOR COMFORT, ORAL CARE PROVIDED, CONT TO MONITOR.
[2016-08-19] VITALS (78 sets, daily range): BP systolic 80–111; BP diastolic 50–73
--- NOTE | 2016-08-19 01:18 | NUR ---
PT REPOSITIONED FOR COMFORT, ORAL CARE PROVIDED, LEVOPHED GTT CURRENTLY AT 18 MCG/MIN, SBP IN 90'S PER MD ORDER, WILL CONT POC.
--- NOTE | 2016-08-19 03:55 | NUR ---
COMPLETE BATH AND LINEN CHANGE DONE, STERILE DRESSING CHANGE TO LT UPPER ARM CVL, PT TOLERATED WITHOUT DIFFICULTY. VSS
[2016-08-19 04:09] LABS: BASOPHILS 0.1 % (0-2); EOSINOPHILS 0 % (0-7); HEMATOCRIT 27.3 % (36.0-48.0); HEMOGLOBIN 9.5 g/dL (12-16); IMMATURE GRANULOCYTES 0.7 % (0-5); MCH 28.9 pg (26.0-34.0); MCHC 34.8 g/dL (31.0-37.0); MEAN PLATELET VOLUME 9.6 fL (7.4-10.4); MONOCYTES 3.3 % (2-11); NEUTROPHILS 87.9 % (40-80); PLATELET COUNT 137 10x3/uL (130-400); RBC 3.29 10x6/uL (4.00-5.40); RDW 17.9 % (11.5-14.5); WBC 20.6 10x3/uL (4.8-10.8)
[2016-08-19 04:16] LABS: INR 2.13 (0.85-1.17); PROTIME 23.9 SECONDS (11.6-15.0)
[2016-08-19 04:23] LABS: ALBUMIN 1.7 g/dL (3.4-5.0); ANION GAP 15.7 mmol/L (8-16); BILIRUBIN - TOTAL 3.97 mg/dL (0.2-1.3); CALCIUM 8.9 mg/dL (8.5-10.1); CREATININE - SERUM 3.7 mg/dL (0.6-1.3); PHOSPHOROUS 4.7 mg/dL (2.5-4.9); POTASSIUM - SERUM 3.7 mmol/L (3.5-5.1); PROTEIN - SERUM 5.4 g/dL (6.4-8.2); VANCOMYCIN - RANDOM 28.3 ug/mL (10.0-20.0)
--- NOTE | 2016-08-19 05:02 | NUR ---
AM LABS REVIEWED, NOTHING TO TREAT PER MD ORDERS.
--- NOTE | 2016-08-19 11:00 | NUR ---
NO CHANGE NOTED
--- NOTE | 2016-08-19 15:00 | NUR ---
NO CHANGE NOTED
--- NOTE | 2016-08-19 19:30 | NUR ---
RESUMED CARE OF PT, ASSESSMENT PER FLOWSHEET. PT ORIENTED TO SELF ONLY, HR ST ON CM, CRACKLES AUSCULTATED BILAT WITH DIM BASES, PPP, ABD DISTENDED WITH HYPO BS, BRAGA CATH PATENT, BILATERAL SOFT WRIST RESTRAINTS INTACT, BED LOW.
--- NOTE | 2016-08-19 21:15 | NUR ---
PT AND SON IN FOR VISITATION, ALL QUESTIONS ANSWERED, DENY ANY NEEDS.
--- NOTE | 2016-08-19 23:30 | NUR ---
REASSESSMENT PER FLOWSHEET, NO ACUTE CHANGES NOTED. PT POSITIONED FOR COMFORT, CONT TO MONITOR.
[2016-08-20] VITALS (58 sets, daily range): BP systolic 89–125; BP diastolic 53–85
[2016-08-20 04:47] LABS: BASOPHILS 0.1 % (0-2); EOSINOPHILS 0.1 % (0-7); HEMATOCRIT 24.3 % (36.0-48.0); HEMOGLOBIN 8.5 g/dL (12-16); IMMATURE GRANULOCYTES 0.5 % (0-5); LYMPHOCYTES 11.4 % (15-50); MCH 28.8 pg (26.0-34.0); MCV 82.4 fL (80.0-100.0); MEAN PLATELET VOLUME 9.6 fL (7.4-10.4); MONOCYTES 3.5 % (2-11); NEUTROPHILS 84.4 % (40-80); PLATELET COUNT 77 10x3/uL (130-400); RBC 2.95 10x6/uL (4.00-5.40); RDW 17.8 % (11.5-14.5)
[2016-08-20 05:14] LABS: ANION GAP 14.2 mmol/L (8-16); CALCIUM 8.9 mg/dL (8.5-10.1); CARBON DIOXIDE 15.1 mmol/L (21.0-32.0); CREATININE - SERUM 3.9 mg/dL (0.6-1.3); POTASSIUM - SERUM 3.3 mmol/L (3.5-5.1)
--- NOTE | 2016-08-20 06:00 | NUR ---
HCT AND POTASSIUM REVIEWED WITH DR FERNANDEZ, NO ORDERS RECEIVED AT THIS TIME.
--- NOTE | 2016-08-20 09:37 | NUR ---
0800 AM ASSESMENT IS COMPLETE SEE FLOW SHEET FOR FINDINGS.. PT IS AWAKE AND TALKING OUTLOUD .. SHE IS NOTORIENTEDD AND SHE DOES NOT RESPOND TO VERBAL QUESTIONS OR COMANDS.. SHE IS JUST TALKING NON STOP .. MIDLINE IV LINE WITH LEVOPHWED INFUSING.. 0900 DR FERNANDEZ IN TO SEE P AND UDPATE IS GIVEN.. AT TTHE BEDSIDE AND DR SPOKE WITH HIM.. DIALYSIS SCHEDULED FOR TODAY..
--- NOTE | 2016-08-20 10:25 | NUR ---
0910 IR CALLED AND DUE TO THE PT INR THE PARACENTISIS AND THORCENTESIS IS ON HOLD TODAY
--- NOTE | 2016-08-20 12:21 | NUR ---
Nutrition follow-up: Diet: Clear liquids Pt with no po intake due to confusion Noted renal physicians progress notes state pt probably not a candidate for TPN due to already fluid overloaded; TF may be an issue due to varices. RDN will continue to monitor. Following.
--- NOTE | 2016-08-20 13:06 | NUR ---
1100 COMPLETE BATH WITH LINEN CHANGE DONE AT THIS TIME.. NOTED A SMALL ERASER SIZED BROKEN SKIN AREA ON THE COCCYX SITE COVERED WITH BUTT BALM 1200 FAAMILY IN AT THIS TIME VISITING.. PT SHOWS NO RECOGNITION AND CONTINUES TO TALK AND NOT FOLLOW COMMANDS..
--- NOTE | 2016-08-20 17:00 | NUR ---
[address] REMAINS WITHOUT CHANGES 1500 FAMILY AT THE BEDSIDE.. [address]00 DR MONTESINOS AT THE BEDSIDE.. UPDATE IS GIVEN..
--- NOTE | 2016-08-20 17:06 | NUR ---
RIBBON LAP MACHINE TENDER AT BEDSIDE..
--- NOTE | 2016-08-20 18:11 | NUR ---
1720 BUPRENEX GIVEN 0.1 1800 WITHOUT CHANGES.. FAMILY AT THE BEDSIDE..
--- NOTE | 2016-08-20 19:30 | NUR ---
REPORT RECEIVED AND CARE ASSUMED. INITIAL SHIFT ASSESSMENT COMPLETED SEE FLOWSHEET. DIALYSIS NURSE IN ROOM SETTING UP. PT WITH DIALYSIS ACCESS IN RIGHT IJ. NURSE PORT IS CLAMPED. PT BEING MONITORED PER STANDARD ICU PROTOCOL WITH ALL ALARMS VERIFIED. ALL IVF AND LINES VERIFIED FOR CURRENT DATE AND TIME. PT NOTED TO BE ON LEVOPHED TITRATED FOR SBP 90-140 PER ORDER. SEE IV FLOWSHEET FOR RATE CHANGES.
--- NOTE | 2016-08-20 19:40 | NUR ---
DIALYSIS INITIATED PER DIALYSIS NURSE. PT TO RECEIVE 2 UNITS OF PRBC PER DR. FERNANDEZ WHILE ON DIALYSIS. BLOOD BANK CALLED, THEY WILL CALL WHEN READY.
--- NOTE | 2016-08-20 22:00 | NUR ---
PT IS COMPLETED WITH DIALYSIS. TOLERATED WELL ALTHOUGH NURSE REPORTS WAS UNABLE TO PULL ANY FLUID. PT DID RECEIVE 2U PRBC WHILE ON DIALYSIS
--- NOTE | 2016-08-20 23:00 | NUR ---
SHIFT REASSESSMENT COMPLETED NO SIGNIFICANT CHANGES.
[2016-08-21] VITALS (66 sets, daily range): BP systolic 97–120; BP diastolic 64–83
--- NOTE | 2016-08-21 01:00 | NUR ---
PT AWAKE RESP REG AND NONLABORED. CONTINUES ON 4L O2 PER OXIMIZER WITH NO SIGNIFICANT CHANGES
--- NOTE | 2016-08-21 03:00 | NUR ---
SHIFT REASSESSMENT COMPLETED. SEE FLOWSHEET. PT HAS NOT HAD A RESTFUL NIGHT. MUMBLING IN A CONFUSED MANNER WORDS THAT MAKE NO SENSE. DOES AT TIME HAVE CLEAR SPEECH
[2016-08-21 03:56] LABS: BASOPHILS 0.1 % (0-2); EOSINOPHILS 0.1 % (0-7); IMMATURE GRANULOCYTES 0.6 % (0-5); LYMPHOCYTES 7.9 % (15-50); MCH 29.4 pg (26.0-34.0); MCHC 35.3 g/dL (31.0-37.0); MCV 83.2 fL (80.0-100.0); MEAN PLATELET VOLUME 10.4 fL (7.4-10.4); NEUTROPHILS 87.3 % (40-80); WBC 14.7 10x3/uL (4.8-10.8)
[2016-08-21 03:57] LABS: HEMATOCRIT 33.1 % (36.0-48.0); HEMOGLOBIN 11.7 g/dL (12-16); PLATELET COUNT 61 10x3/uL (130-400); RBC 3.98 10x6/uL (4.00-5.40)
[2016-08-21 04:07] LABS: INR 2.22 (0.85-1.17); PROTIME 24.7 SECONDS (11.6-15.0)
[2016-08-21 04:12] LABS: BILIRUBIN - TOTAL 6.05 mg/dL (0.2-1.3); CALCIUM 8.9 mg/dL (8.5-10.1); MAGNESIUM - SERUM 2.1 mg/dL (1.8-2.4); POTASSIUM - SERUM 3.3 mmol/L (3.5-5.1)
[2016-08-21 04:14] LABS: ALBUMIN 2.4 g/dL (3.4-5.0); ANION GAP 17.8 mmol/L (8-16); CARBON DIOXIDE 21.5 mmol/L (21.0-32.0); CREATININE - SERUM 2.9 mg/dL (0.6-1.3)
--- NOTE | 2016-08-21 04:15 | NUR ---
RADIOLGY AT BEDSIDE FOR CXR
--- NOTE | 2016-08-21 05:58 | NUR ---
LABS REVIEWED ELECTROLYTE PROTOCOL FOLLOWED SEE MAR
--- NOTE | 2016-08-21 15:56 | NUR ---
0800 AM ASSESMENT IS COMPLETE SEE FLOW SHEET FOR FINDINGS.. PT IS TALKING OUT BUT NOT APPROPRIATE IN RESPONSES.. 0900 DR FENG IN TO SEE PT.. SPOKE WITH FAMILY AT THE BEDSIDE.. 1130 DR MONTESINOS IN TO SEE PT SPOKE WITH DR HUTSON. UPDATE IS GIVEN TO BOTH DR RE PT.. 1145 DR WYLIE IN TO SEE PT.. FFP HUNG AT THIS TIME.. 1200 FAMILY IN TO SE PT.. 1215 FFP THRU INFUSING.. POTASIUM DRAWN FOR LAB.. 1400 BATH WITH PARTIAL LINEN CHANGE BUTT BALM TO BUTTOCKS.. 1500 FAMILY IN TO SE PT.. PT CONITNUES TO TALK UNINTELIGABLY IT IS NON STOP..
--- NOTE | 2016-08-21 19:03 | NUR ---
1630 I AND O DONE 1800 FAMILY AT THE BEDSIDE.. UPDATE IS GIVEN.. PT REMAINS WITHOUT CHANGES..
--- NOTE | 2016-08-21 19:30 | NUR ---
SHIFT REPORT RECIVED. PATIENT ASSESSED SEE FLOW SHEET. PATIENT BEING MONITORED PER STANDARD ICU PROTOCOL. ALL ALARMS CHECKED. ALL IV FLUIDS LINES VERIFIED FOR CURRENT DATES. LABELED AND DATED APPROPRIOTLY. PT REMAINS CONFUSED NO STATUS CHANGE IN THE LAST 24HR.
--- NOTE | 2016-08-21 21:00 | NUR ---
NO VISITORS AT THIS TIME. NO MEDS DUE. PT TURNED AND ADLS COMPLETED.
--- NOTE | 2016-08-21 23:00 | NUR ---
BRAGA CARE PER ICU PROTOCOL. REPOSITIONED AND CHANGED GOWN AND SHEETS.
[2016-08-22] VITALS (83 sets, daily range): BP systolic 81–117; BP diastolic 58–85
--- NOTE | 2016-08-22 01:00 | NUR ---
PT RESTING QUIETLY.
--- NOTE | 2016-08-22 03:00 | NUR ---
SHIFT REASSESSMENT DONE NO CHANGE. VITALS SIGNS STABLE. COMPLETE BED BATH AND LINEN CHANGE. R IJ DRESSING CHANGED USING STERILE TECHNIQUE, TEGADEM APPLIED WITH BIOPATCH, TIMED AND DATED. L UPPER ARM MIDLINE CATH DRESSING CHANGED USING CENTRAL DRESSING KIT, TIMED AND DATED.
[2016-08-22 04:28] LABS: BASOPHILS 0 % (0-2); EOSINOPHILS 0.1 % (0-7); HEMATOCRIT 31.4 % (36.0-48.0); HEMOGLOBIN 11.2 g/dL (12-16); IMMATURE GRANULOCYTES 0.6 % (0-5); MCH 29.3 pg (26.0-34.0); MCHC 35.7 g/dL (31.0-37.0); MCV 82.2 fL (80.0-100.0); MONOCYTES 4.5 % (2-11); NEUTROPHILS 85.8 % (40-80); PLATELET COUNT 68 10x3/uL (130-400); RBC 3.82 10x6/uL (4.00-5.40); RDW 16.4 % (11.5-14.5)
[2016-08-22 04:54] LABS: INR 1.85 (0.85-1.17); PROTIME 21.3 SECONDS (11.6-15.0)
[2016-08-22 05:13] LABS: ALBUMIN 2.4 g/dL (3.4-5.0); ANION GAP 20.2 mmol/L (8-16); BILIRUBIN - TOTAL 5.6 mg/dL (0.2-1.3); CALCIUM 9.3 mg/dL (8.5-10.1); CARBON DIOXIDE 18.6 mmol/L (21.0-32.0); CREATININE - SERUM 3.4 mg/dL (0.6-1.3); POTASSIUM - SERUM 3.8 mmol/L (3.5-5.1); PROTEIN - SERUM 5.7 g/dL (6.4-8.2)
--- NOTE | 2016-08-22 05:22 | NUR ---
NO CHANGE. WAITING ON LABS. PT RESTING QUIETLY.
--- NOTE | 2016-08-22 05:24 | NUR ---
LABS REVIEWED NO TREATMENT FOR ELECTROLYTE PROTOCOL
--- NOTE | 2016-08-22 10:50 | NUR ---
Nutrition follow-up: Pt still confused. No po intake at this time Labs reviewed Wt: 128# Due to esophageal varices and high INR placing an NGT is dangerous for bleeding. Will wait for physician to make decision. RDN following.
--- NOTE | 2016-08-22 11:38 | NUR ---
PARACENTESIS COMPLETED, AIROVERLAY MATTRESS APPLIED TO BED.
[2016-08-22 12:45] LABS: PROTEIN - BODY FLUID 0.8 G/DL
[2016-08-22 13:32] LABS: LYMPH - BF 34 %; MACROPHAGES BF 26 %; MESOTHELIALS BF 6 %; NEUT - BF 34 %
--- NOTE | 2016-08-22 17:33 | NUR ---
HD COMPLETE. 2L PULLED IN HD.
--- NOTE | 2016-08-22 17:35 | NUR ---
Mrs. Meadows had bedside hemodialysis today via her right IJ Trialysis from 1410 until 1710. Average blood flow was 400 mls/minute. Net fluid removed was 2000 mls. Post vital signs were: B/P: 88/56, HR: 102, Temp: 96.4, Resps: 16.
--- NOTE | 2016-08-22 19:30 | NUR ---
REPORT RECIEVED PT STABLE. SHIFT ASSESMENT COMPLETED. BED ALARMS ARE WORKING AND ON. IV TUBING LABLED AND CAPPED.
--- NOTE | 2016-08-22 21:00 | NUR ---
FAMILY IN ROOM WITH PT
--- NOTE | 2016-08-22 21:15 | NUR ---
FAMILY AT BEDSIDE INCLUDING SON, SPOUSE AND DAUGHTER. UPDATE GIVEN AND QUESTIONS ANSWERED
--- NOTE | 2016-08-22 23:00 | NUR ---
REASSESSMENT COMPLETED NO CHANGES. SEE FLOW SHEET.
[2016-08-23] VITALS (69 sets, daily range): BP systolic 94–113; BP diastolic 54–83
--- NOTE | 2016-08-23 01:00 | NUR ---
PT REQUIRES TOTAL ASSISTANCE WITH ADLS. LEVAPHED RUNNING AT 12 MCG/MIN VSS.
--- NOTE | 2016-08-23 03:00 | NUR ---
SHIFT REASSESMENT COMPLETED. NO CHANGES NOTED. REPOSITIONED FOR COMFORT.
--- NOTE | 2016-08-23 04:00 | NUR ---
LABS DRAWN FROM NURSE PORT ON TRIALYSIS CATH. SENT FOR ANALYSIS.
[2016-08-23 04:38] LABS: BASOPHILS 0.1 % (0-2); EOSINOPHILS 0.1 % (0-7); HEMATOCRIT 31.1 % (36.0-48.0); HEMOGLOBIN 11.3 g/dL (12-16); IMMATURE GRANULOCYTES 0.5 % (0-5); MCH 29.9 pg (26.0-34.0); MCHC 36.3 g/dL (31.0-37.0); MCV 82.3 fL (80.0-100.0); MONOCYTES 6.4 % (2-11); NEUTROPHILS 83.9 % (40-80); RBC 3.78 10x6/uL (4.00-5.40); RDW 16.7 % (11.5-14.5); WBC 14.6 10x3/uL (4.8-10.8)
[2016-08-23 04:40] LABS: PLATELET COUNT 48 10x3/uL (130-400)
[2016-08-23 04:55] LABS: ALBUMIN 2.1 g/dL (3.4-5.0); ANION GAP 15.3 mmol/L (8-16); BILIRUBIN - TOTAL 5.15 mg/dL (0.2-1.3); CALCIUM 9.1 mg/dL (8.5-10.1); CARBON DIOXIDE 24.3 mmol/L (21.0-32.0); CREATININE - SERUM 2.5 mg/dL (0.6-1.3); POTASSIUM - SERUM 3.6 mmol/L (3.5-5.1); PROTEIN - SERUM 5.9 g/dL (6.4-8.2)
--- NOTE | 2016-08-23 05:13 | NUR ---
PT LABS REVIEWED AND ELECTROLYTE PROTOCOL FOLLOWED. NO TREATMENT NEEDED.
[2016-08-23 05:20] LABS: INR 1.1 (0.85-1.17); PROTIME 14.1 SECONDS (11.6-15.0)
--- NOTE | 2016-08-23 06:41 | NUR ---
UNABLE TO WEIGH PT DUE TO BED NOT BEING ZEROED WHEN AIR OVER LAY WAS PUT ON
--- NOTE | 2016-08-23 13:24 | NUR ---
0800 AM ASSESMENT IS COMPLETE SEE FLOW SHEET FOR FINDINGS.. PT REMAINS OBTUNDED FOR THE MOST PART.. SPEECH IS MUCH IMPROVED BUT SHE REMAINS WITHOUT COGNITION OR APPROPRIATE RESPONSES.. THERE IS A NOTED AMOUNT OF JAUNDICE TO HER EYES... LEFT MIDLINE IV REMAINS IN PLACE AND RIGHT IJ TRIALYSIS CATH SALINE LOCKED... AIR OVERLAY ON THE BED.. THERE IS MULTIPLE SKIN TEARS AND BRUISING ON ARMS AND BUTTOCKS REMAINS WITH THE PRESSURE TYPE SORE.. LEWVOPHED ON AT 12 MCG AND TITRATED FOR BP .. SYS HOVERING AROUND 100.. 0900 FAMILY IN TO SEE PT.. UPDATE IS GIVEN.. 1030 DR FENG IN TO SEE PT 1100 DR MONTESINOS IN TO SEE PT UPDATE IS GIVEN.. 1200 FAMILY IN TO SEE PT.. UPDATE GIVEN.. 1330 IR IN UNIT TO TRANSPORT TO LAB FOR THORCENTESIS..
[2016-08-23 16:04] LABS: PROTEIN - BODY FLUID 1.2 G/DL
[2016-08-23 16:15] LABS: ACID FAST SMEAR Negative (()); AFB SPECIMEN PROCESSING Not Indicated (())
[2016-08-23 17:10] LABS: LYMPH - BF 26 %; MACROPHAGES BF 22 %; NEUT - BF 52 %
--- NOTE | 2016-08-23 17:46 | NUR ---
1430 RETURNED FROM IR VIA BED PT IS AWAKE AND CONTIUES WITHOUT CHANGES.. DRESSING SITE IS CDI AT THIS TIME.. 1500 FAMILY IN TO SEE PT AND UPDATE IS GIVEN.. 1600 WITHOUT CHANGES I AND O DONE.. 1700 NO CHANGES IN PT STATUS..
--- NOTE | 2016-08-23 19:00 | NUR ---
REPORT RECEIVED AND ASSESSMENT COMPLETED. SEE FLOWSHEET FOR FULL DETAILS.
--- NOTE | 2016-08-23 21:00 | NUR ---
PT FAMILY AT BEDSIDE. DISCUSSED SWALLOW EVAL RESULTS. NO OTHER CHANGES IN STATUS AT THIS TIME. WILL CONMTINUE TO MONITOR
--- NOTE | 2016-08-23 23:00 | NUR ---
REASSESSMENT COMPLETED. SEE FLOWSHEET. WATER GIVEN TO PT AT THIS TIME.
[2016-08-24] VITALS (96 sets, daily range): BP systolic 91–115; BP diastolic 56–90
--- NOTE | 2016-08-24 01:00 | NUR ---
NO CHANGES IN STATUS. AT THIS TIME
--- NOTE | 2016-08-24 03:00 | NUR ---
REASSESSMENT COMPLETED. SEE FLOWSHEET FOR FULL DETAILS. RADIOLOGY AT BEDSIDE. NO OTHER CHANGES IN STATUS AT THIS TIME. WILL CONTINUE TO MONITOR
--- NOTE | 2016-08-24 05:00 | NUR ---
PT STATES SHE WANTS TO SEE HER . VERY DISTRESSED THAT HE IS NOT PRESENT. EXPLAINED VISITING HOURS AND TOLD HER ABOUT HER DISCUSSING HIS MORNING VISIT PLANS IN AM. PT CALMED DOWN. NO OTHER CHANGES IN STATUS AT THIS TIME. WILL MONITOR
[2016-08-24 05:24] LABS: BASOPHILS 0.1 % (0-2); EOSINOPHILS 0.3 % (0-7); HEMATOCRIT 32.3 % (36.0-48.0); HEMOGLOBIN 11.3 g/dL (12-16); IMMATURE GRANULOCYTES 0.4 % (0-5); MCH 29.5 pg (26.0-34.0); MEAN PLATELET VOLUME 10.3 fL (7.4-10.4); MONOCYTES 6.8 % (2-11); NEUTROPHILS 83.4 % (40-80); RBC 3.83 10x6/uL (4.00-5.40); WBC 17.2 10x3/uL (4.8-10.8)
[2016-08-24 05:27] LABS: MCV 84.3 fL (80.0-100.0); PLATELET COUNT 63 10x3/uL (130-400)
[2016-08-24 05:41] LABS: INR 1.69 (0.85-1.17); PROTIME 19.8 SECONDS (11.6-15.0)
[2016-08-24 05:42] LABS: ALBUMIN 2.1 g/dL (3.4-5.0); ANION GAP 15.3 mmol/L (8-16); BILIRUBIN - TOTAL 5.02 mg/dL (0.2-1.3); CALCIUM 9.2 mg/dL (8.5-10.1); CARBON DIOXIDE 23.5 mmol/L (21.0-32.0); CREATININE - SERUM 2.9 mg/dL (0.6-1.3); MAGNESIUM - SERUM 1.9 mg/dL (1.8-2.4); POTASSIUM - SERUM 3.8 mmol/L (3.5-5.1); PROTEIN - SERUM 5.9 g/dL (6.4-8.2)
--- NOTE | 2016-08-24 10:53 | NUR ---
Nutrition follow-up: Passed speech eval; diet advanced to low sodium, mechanical soft with thin liquids Labs reviewed Wt: 128# If pt with good po intake, will need to change diet order to renal mechanical soft, low sodium if dialysis to continue. RDN following.
[2016-08-24 12:17] LABS: FUNGUS STAIN Final report (())
[2016-08-24 17:11] LABS: ACID FAST SMEAR Negative (()); AFB SPECIMEN PROCESSING Not Indicated (())
--- NOTE | 2016-08-24 19:00 | NUR ---
1900: Pt rec'd resting with eyes closed HOB 30 degrees and open to verbal. Pt is not oriented and voice is difficult to hear. Pt does move x4 extrem weakly vs gravity. Breathing 022LNC with RR12x with SPO2 98%. ST 110's on CM with SBP 100's. Pt remains on Levophed gtt to keep SBP >90. IJ Trialysis catheter intact. Beard to gravity with dark UOP at this time.
--- NOTE | 2016-08-24 21:00 | NUR ---
2100: Pt family here at bedside. Update provided and verbalized understanding.
--- NOTE | 2016-08-24 23:00 | NUR ---
2300: Pt repositioned for comfort with pillow supports. Pt remains ST 100's on CM with SBP 100 with Levophed infusing as per IV gtts. No change in RESP/NV status. Beard output approx 20 cc/hr.
[2016-08-25] VITALS (87 sets, daily range): BP systolic 71–110; BP diastolic 5–77
--- NOTE | 2016-08-25 01:00 | NUR ---
0100: Bath done and linen changed at this time. Beard care done. Pt repositioned for comfort at this time. Pt remains ST 100's on CM with SBP 90-100. Levophed unchanged at this time.
[2016-08-25 04:43] LABS: BASOPHILS 0 % (0-2); EOSINOPHILS 0.5 % (0-7); HEMATOCRIT 31.7 % (36.0-48.0); IMMATURE GRANULOCYTES 0.8 % (0-5); LYMPHOCYTES 7.4 % (15-50); MCH 29.4 pg (26.0-34.0); MCHC 34.7 g/dL (31.0-37.0); MCV 84.8 fL (80.0-100.0); MEAN PLATELET VOLUME 10.2 fL (7.4-10.4); MONOCYTES 7.6 % (2-11); NEUTROPHILS 83.7 % (40-80); PLATELET COUNT 62 10x3/uL (130-400); RBC 3.74 10x6/uL (4.00-5.40); WBC 20.4 10x3/uL (4.8-10.8)
[2016-08-25 04:50] LABS: INR 1.71 (0.85-1.17); PROTIME 20.1 SECONDS (11.6-15.0)
[2016-08-25 04:51] LABS: APTT 43.1 SECONDS (22.8-39.4)
[2016-08-25 04:58] LABS: ALBUMIN 1.9 g/dL (3.4-5.0); ANION GAP 13.5 mmol/L (8-16); BILIRUBIN - TOTAL 5.27 mg/dL (0.2-1.3); CALCIUM 9.2 mg/dL (8.5-10.1); CARBON DIOXIDE 22.3 mmol/L (21.0-32.0); CREATININE - SERUM 3.2 mg/dL (0.6-1.3); PHOSPHOROUS 5.2 mg/dL (2.5-4.9); POTASSIUM - SERUM 3.8 mmol/L (3.5-5.1); PROTEIN - SERUM 5.7 g/dL (6.4-8.2)
--- NOTE | 2016-08-25 05:00 | NUR ---
0500: No change in pt RESP/CV/NV status. No change in IVF/UOP. UOP remains decreased <10 cc/hr dark.
[2016-08-25 05:05] LABS: D-DIMER-QUANTITATIVE 14.93 ug/mLFEU (0.20-0.54)
--- NOTE | 2016-08-25 10:48 | NUR ---
AWAKE MAKES EYE CONTACT. TALKS TO , HE STATES THAT SHE IS ALERT. PATIENT WOULD NOT SQUEEZE HANDS ON REQUEST OR TAKE A DEEP BREATH. NURSE COULD NOT UNDERSTAND ANYTHING SHE SAID. DIAYLYSIS IN PROGRESS PER RIJ TRIALYSIS. RIGHT AC MIDLINE IV CATH INFUSING WITH NS AT 5 ML HOUR AND LEVOPHED CURRENTLY AT 20 MCG/MIN . BILATERAL LUNGS SOUNDS CLEAR UPPER LOBES. ABD LARGE AND TENDER TO PALPATATION. DRESSING RIGHT LOWER ABD DRY AND INTACT. GOOD BOWEL SOUNDS PRESENT BRAGA CATH PATENT AND DRAINING SMALL AMOUNT ROB URINE. LARGE AMOUNT OF PITTING EDEMA IN LEGS AND ANKLES. RESTRAINED TO PROTECT TUBES.
--- NOTE | 2016-08-25 12:21 | NUR ---
Mrs. Meadows had bedside hemodialysis via her right IJ Trialysis from 0855 until 1155. Average blood flow was 350 mls/minute. Net fluid removed was 1000 mls. Post cital signs were: B/P: 88/53, HR: 107, Temp: 97.7, Resps:17.
--- NOTE | 2016-08-25 19:00 | NUR ---
LAYING IN BED SUPINE. NO VISITORS PRESENT. ORIENTED TO PERSON AND PLACE. SPEECH IS DIFFICULT TO HEAR. NO LESIONS NOTED THROUGHOUT SCALP. YELLOW SCLERA NOTED IN BOTH EYES. MUCOUS MEMBRANES PINK AND MOIST. TONGUE MIDLINE. NO COUGH PRESENT. S1S2 PRESENT REGULAR AND RAPID. EXPIRATORY WHEEZES NOTED IN ALL LOBES. COROTID PULSES +1. RADIAL PULSES BOUNDING EQUAL BILATERALLY. PEDAL PULSES PRESENT PALPABLE +1 EQUAL BILATERALLY. GENERALIZED BRUISING. EDEMA NOTED BOTH HANDS AND FEET. WHEN ASKED TO MOVE EXTREMITIES PT DOES NOT FOLLOW COMMAND. WHEN ASSISTING IN MOVING FEET SHE SAYS "NO." BED IN LOWEST POSITION. CALL LIGHT WITHIN REACH. DENIES FURTHER NEEDS AT THIS TIME.
--- NOTE | 2016-08-25 21:00 | NUR ---
LAYING IN BED. REPOSITIONED FOR COMFORT. BRAGA CARE DONE. BED IN LOWEST POSITION. CALL LIGHT WITHIN REACH.
--- NOTE | 2016-08-25 23:00 | NUR ---
AWAKE LAYING IN BED. REPOSITIONED FOR COMFORT. BED LINENS CHANGED. HOSPITAL GOWN CHANGED. REASSESSMENT DONE SEE FLOWSHEET. CONTINUE TO WEANE LEVOPHED TOLERATED. BED IN LOWEST POSITON. CALL LIGHT WITHIN REACH.
[2016-08-26] VITALS (93 sets, daily range): BP systolic 79–114; BP diastolic 47–599
--- NOTE | 2016-08-26 01:00 | NUR ---
AWAKE LAYING IN BED. REPOSITIONED FOR COMFORT. DENIES FURTHER NEEDS AT THIS TIME. CALL LIGHT WITHIN REACH. BED IN LOWEST POSITION.
--- NOTE | 2016-08-26 02:05 | NUR ---
0205: Pt with approx 12 second run of V-Tach. Pt self converted back to ST 100's. No change in pt BP and continue to titrate Levophed as per orders. AM lab drawn now and sent to lab.
[2016-08-26 02:18] LABS: BASOPHILS 0.1 % (0-2); EOSINOPHILS 0.5 % (0-7); HEMATOCRIT 31.9 % (36.0-48.0); HEMOGLOBIN 11.3 g/dL (12-16); IMMATURE GRANULOCYTES 0.6 % (0-5); LYMPHOCYTES 5.9 % (15-50); MCH 29.8 pg (26.0-34.0); MCHC 35.4 g/dL (31.0-37.0); MCV 84.2 fL (80.0-100.0); MONOCYTES 7.9 % (2-11); PLATELET COUNT 49 10x3/uL (130-400); RBC 3.79 10x6/uL (4.00-5.40); RDW 17.3 % (11.5-14.5); WBC 23.5 10x3/uL (4.8-10.8)
[2016-08-26 02:30] LABS: APTT 42.6 SECONDS (22.8-39.4); INR 1.89 (0.85-1.17); PROTIME 21.7 SECONDS (11.6-15.0)
--- NOTE | 2016-08-26 02:30 | NUR ---
0230: Lab returned. Dr. Mcconnell paged at this time.
[2016-08-26 02:33] LABS: ALBUMIN 2.1 g/dL (3.4-5.0); ANION GAP 12.9 mmol/L (8-16); BILIRUBIN - TOTAL 6.82 mg/dL (0.2-1.3); CALCIUM 8.6 mg/dL (8.5-10.1); CARBON DIOXIDE 25.8 mmol/L (21.0-32.0); CREATININE - SERUM 2.5 mg/dL (0.6-1.3); POTASSIUM - SERUM 3.7 mmol/L (3.5-5.1); PROTEIN - SERUM 5.9 g/dL (6.4-8.2)
--- NOTE | 2016-08-26 03:00 | NUR ---
0300: Pt remains ST 110's with SBP 90-100. No further Arrhythmia seen since previous dcoumentation. Levophed as per IV gtts. Pt UOP decreased <30 cc/hr (scant output at this time)
--- NOTE | 2016-08-26 05:00 | NUR ---
LAYING IN BED AWAKE. TITRATING LEVOPHED NEEDED. BED IN LOWEST POSITION. CALL LIGHT WITHIN REACH. DENIES FURTHER NEEDS AT THIS TIME.
--- NOTE | 2016-08-26 13:03 | NUR ---
PATIENT COMPLIANTED TO FAMILY OF GENERALIZED PAIN ALL OVER. CALLED BRENNAN Morin RENEWED bUPRENEX FOR PAIN. 0.1MG IV GIVEN FOR PAIN. WITH GOOD RESULTS. PATIENT RESTING COMFORTABLY
--- NOTE | 2016-08-26 15:07 | NUR ---
PARTIAL BATH GIVEN WITH PERINEAL CARE. MOISTURE BARRIER TO COCCYX AREA. 3 EXCORATED AREAS ON COCCYX. TOLERATED WELL. HEELS ELEVATED ON PILLOWS . REPOSITIONED ON RIGHT SIDE. BRAGA CATH PATENT. IV LEFT AC WITHOUT REDNESS OR DRAINAGE. INFUSING IWTH LEVAPHED AT 12 MCG/MIN. NS KVO. FEW BITES OF MASH POTATOES AT LUNCH. COUPLE BITES OF BISCUITS AND GRAVY AT BREAKFAST.
--- NOTE | 2016-08-26 19:00 | NUR ---
LAYING IN BED EYES CLOSED. NO VISITORS. REPOSITIONED TO L SIDE FOR COMFORT. PAIN RATED 0/10 BASED ON NUMERIC SCALE. ORIENTED TO PERSON AND PLACE. 2 L/MIN NC. R IJ TRIALYSIS IN PLACE, DRESSING CLEAN DRY AND INTACT. L AC MIDLINE CATHERTER IN PLACE, PATENT, DRESSING CLEAN DRY AND INTACT. TITRATING LEVOPHED TO MAINTAIN SBP >90.GENERALIZED EDEMA NOTED IN UPPER EXTREMITIES. PITTING EDEMA +2 IN BOTH FEET. ARMS AND LEGS ELEVATED ON PILLOWS. TELEMETRY SINUS TACHYCARDIA RATE OF 108. HOB 30 DEGREES. CALL LIGHT WITHIN REACH. BED IN LOWEST POSITION. DENIES FURTHER NEEDS AT THIS TIME.
[2016-08-27] VITALS (62 sets, daily range): BP systolic 81–109; BP diastolic 46–74
[2016-08-27 04:57] LABS: BASOPHILS 0 % (0-2); EOSINOPHILS 0.1 % (0-7); HEMATOCRIT 31.1 % (36.0-48.0); HEMOGLOBIN 10.9 g/dL (12-16); IMMATURE GRANULOCYTES 0.6 % (0-5); LYMPHOCYTES 6.2 % (15-50); MCH 29.5 pg (26.0-34.0); MCV 84.1 fL (80.0-100.0); NEUTROPHILS 84.1 % (40-80); PLATELET COUNT 63 10x3/uL (130-400); RDW 17.5 % (11.5-14.5)
[2016-08-27 05:04] LABS: ALBUMIN 1.9 g/dL (3.4-5.0); ANION GAP 17.5 mmol/L (8-16); BILIRUBIN - TOTAL 7.29 mg/dL (0.2-1.3); CALCIUM 9.3 mg/dL (8.5-10.1); CARBON DIOXIDE 22.5 mmol/L (21.0-32.0); PHOSPHOROUS 4.6 mg/dL (2.5-4.9); PROTEIN - SERUM 5.7 g/dL (6.4-8.2)
--- NOTE | 2016-08-27 07:00 | NUR ---
PT AWAKE AND ALERT. DISORIENTED TO TIME AND SITUATION. DENIES PAIN AT THIS TIME AND CAN OBEY COMMANDS BUT IS INCONSISTENT. SINUS TACHYCARDIA NOTED ON MONITOR. LUNG SOUNDS COURSE/CRACKLES WITH EXPIRATORY WHEEZING BILAT. HYPOACTIVE BOWEL SOUNDS X4. LEFT LATERAL CHEST THORACENTESIS DRESSING CDI. WILL CONTINUE TO MONITOR PT STATUS. BP STABLE ON LEVOPHED.
--- NOTE | 2016-08-27 09:00 | NUR ---
UPDATE GIVEN TO FAMILY. REPOSITIONED IN BED. WILL CONTINUE TO MONITOR.
--- NOTE | 2016-08-27 11:00 | NUR ---
PT REPOSITIONED IN BED AND CLEANED, COMPLETE LINEN CHANGE. O2 SAT LABILE BUT PT STABLE AT THIS TIME. WILL CONTINUE TO MONITOR
--- NOTE | 2016-08-27 11:07 | NUR ---
Nutrition follow-up: Diet advanced to regular mechanical soft with thin liquids PO intake poor at this time-pt very weak, confused Labs reviewed Wt: 135# - pt s/p thoacentesis; however, fluid reaccumulating per physician Levophed in uses Pt would benefit from nutrition support with TF if medically feasible. RDN following.
--- NOTE | 2016-08-27 13:00 | NUR ---
PT STATUS REMAINS UNCHANGED. DR FRIEND DISCUSSED POSSIBLE HOSPICE CARE WITH FAMILY AND THEY ARE NOT READY AT THIS TIME. WILL CONTINUE TO EDUCATE.
[2016-08-27 14:17] LABS: FUNGUS STAIN Final report (())
--- NOTE | 2016-08-27 15:00 | NUR ---
PT REPOSITIONED IN BED. COMPLAINING OF PAIN. WILL TREAT WITH PRN PAIN MEDICATION. O2 SAT STABLE. MONITORING BP CLOSELY AND TITRATING LEVOPHED APPROPRIATELY. WILL CONTINUE TO MONITOR
--- NOTE | 2016-08-27 16:00 | NUR ---
CALLED AND NOTIFIED DR KAHN OF CONSULT ON PT. SHE WILL ROUND ON PT TOMORROW.
--- NOTE | 2016-08-27 16:53 | NUR ---
1650 [facility] [place] [facility] HAND SPOKE WITH PTS AND DR TODD SPOKE WITH HIM WELL. FAMILY IS NOW READY TO CONTINUE CARE WITH HOSPICE. DR FRIEND NOTIFIED OF HOSPICE CONSULT AND DNR. WILL CONTINUE WITH CASE MANAGEMENT
--- NOTE | 2016-08-27 17:16 | NUR ---
Late Entry 1648 CM was approached by home service advisor from [place], Marcell Stanton and the primary nurse, Melody regarding a hospice consult . MR Romy has known the family for years. DR Mahajan is speaking with the family. There had been some discussion this am. Family returned this pm and requested hospice care. Stating they are ready. TC to [facility] the GIP provider for NP. Advised them of consult. DR Mahajan provided the order. H/P, face sheet, order and recent progress notes faxed to [facility] office. [place] nurse just arrived on site for eval. Packet provided to her.
--- NOTE | 2016-08-27 17:20 | NUR ---
NEENA WITH [facility] ON UNIT TO EVALUATE PT. MARITZA WITH CASE MANAGEMENT PRINTED PT PACKET FOR HOSPICE. WILL CONTINUE TO MONITOR PT AT THIS TIME AND CONTINUE HOSPICE CARE ORDERED
[2016-08-27] MEDS ORDERED: ATIVAN2 MG/ML IV (22:09)
[2016-08-27] MEDS ORDERED: MORPHINE P30 MG/30 M IV (22:12)
[2016-08-27] MEDS ORDERED: ISOPTO ATROPINE5 ML SL (22:16)
== END 2016-08-27 21:50 | disposition hospice, inpatient (51) | DRG 432 ==
LOC: D.ER 10:20 → D.MS 17:50 → D.ICU 17:50
PROVIDERS: Emergency Medicine; Family Medicine; Family Medicine Adult Medicine; General Practice; Internal Medicine Nephrology; Internal Medicine Pulmonary Disease; Nurse Practitioner Family; Radiology Diagnostic Radiology; ADMIT Family Medicine
PROC: 0W9G3ZZ Drainage of Peritoneal Cavity, Percutaneous Approach (ICD-10-PCS; principal; 2016-08-04)
PROC: 0W9G3ZZ Drainage of Peritoneal Cavity, Percutaneous Approach (ICD-10-PCS; 2016-08-09)
PROC: 05HM33Z Insertion of Infusion Device into Right Internal Jugular Vein, Percutaneous Approach (ICD-10-PCS; 2016-08-17)
PROC: 5A1D60Z (ICD-10-PCS; 2016-08-18)
PROC: 0W9G3ZZ Drainage of Peritoneal Cavity, Percutaneous Approach (ICD-10-PCS; 2016-08-22)
DX: K70.31 Alcoholic cirrhosis of liver with ascites (principal); G93.41 Metabolic encephalopathy; N17.9 Acute kidney failure, unspecified; E87.1 Hypo-osmolality and hyponatremia; K76.6 Portal hypertension; D68.9 Coagulation defect, unspecified; I85.10 Secondary esophageal varices without bleeding; B18.2 Chronic viral hepatitis C; D64.9 Anemia, unspecified; E87.6 Hypokalemia; D69.6 Thrombocytopenia, unspecified; K76.81 Hepatopulmonary syndrome; R00.0 Tachycardia, unspecified; I08.1 Rheumatic disorders of both mitral and tricuspid valves

== ENCOUNTER 2016-08-27 20:36 | Inpatient (IN) | payer OTHER ==
[~2016-08-27] VITALS: Ht 165.1 cm; Wt 55.9 kg
[~2016-08-27 20:36] MED LIST changes: +PEPCID20 MG PO
--- NOTE | 2016-08-27 21:50 | NUR ---
PT ADMITED TO HOSPICE. ASSESSMENT AND HISTORY COMPLETED.
[2016-08-27 21:51] VITALS: BP 57/39; Ht 165.1 cm; Wt 55.9 kg
[2016-08-27 22:00] VITALS: BP 71/38
[2016-08-27] MEDS ORDERED: ATIVAN2 MG/ML IV (22:09)
[2016-08-27] MEDS ORDERED: MORPHINE P30 MG/30 M IV (22:12)
[2016-08-27] MEDS ORDERED: ISOPTO ATROPINE5 ML SL (22:16)
--- NOTE | 2016-08-28 | NUR ---
NO CHANGES AT THIS TIME. SR ON THE MONTIOR.
--- NOTE | 2016-08-28 02:00 | NUR ---
REPOSITIONED FOR COMFORT. WILL CONT TO MONITOR.
[2016-08-28 04:00] VITALS: BP 63/35
[2016-08-28 06:00] VITALS: BP 61/37
--- NOTE | 2016-08-28 07:00 | NUR ---
PT IS HOSPICE AND BEING TREATED ON UNIT UNTIL BED BECOMES AVAILABLE ON FLOOR. SHIFT ASSESSMENT DOCUMENTED PER FLOWSHEET. WILL CONTINUE TO MONITOR AND TREAT HOSPICE.
--- NOTE | 2016-08-28 12:35 | NUR ---
FAMILY REQUEST PAIN MEDICINE FOR PATIENT. LOOKED IN CHART TO SEE IF THERE IS PRN PAIN MEDICATION ORDERED. NOTIFIED RN
--- NOTE | 2016-08-28 12:40 | NUR ---
EXPLAINED TO FAMILY THAT PAIN MEDICINE CAN BE GIVEN WHEN SUPPLIES ARE BROUGHT TO UNIT BY [facility] [employer]. CALLED FOR [employer] AND WAITING FOR EQUIPMENT
--- NOTE | 2016-08-28 15:00 | NUR ---
PT REMAINS ON COMFORT CARE WITH HOSPICE. STABLE AT THIS TIME. WILL CONTINUE TO MONITOR WHILE WAITING ON TRANSFER TO FLOOR.
--- NOTE | 2016-08-28 19:15 | NUR ---
REPORT RECIEVED. ASSESSMENT COMPLETED. PT IS ON HOPICE WITH COMFORT MEASURES.
--- NOTE | 2016-08-28 20:02 | NUR ---
STOPPED TO SEE PT. DISCUSSED KEEPING PT COMFORTABLE WITH JETTING MACHINE OPERATOR NEEDED.
[2016-08-29] VITALS: BP 63/31
--- NOTE | 2016-08-29 | NUR ---
PT POSITIONED FOR COMFORT. NO SIGN OF DISTRESS.
[2016-08-29 04:00] VITALS: BP 74/37
--- NOTE | 2016-08-29 04:00 | NUR ---
PT REPOSITIONED FOR COMFORT NO SIGN OF DISTRESS
--- NOTE | 2016-08-29 06:00 | NUR ---
PT INCONT. OF STOOL. COMPLETE BATH AND CIARA-CARE DONE.
--- NOTE | 2016-08-29 06:15 | NUR ---
NOTED BRADYCARDIA , RR TO 5. HUSAND HERE AND AT BS.
--- NOTE | 2016-08-29 06:20 | NUR ---
HOSPICE NURSE PAGED.
--- NOTE | 2016-08-29 06:34 | NUR ---
DR. MORGAN AT TO PRONOUNCE.
--- NOTE | 2016-08-29 09:21 | NUR ---
CM MET WITH HOSPICE NURSE AND HEBREW CANTOR REGARDING PATIENTS . SPOUSE HAD JUST LEFT ROOM AND STATED HE WOULD CALL IN THE AFTERNOON TO LET HOSPICE KNOW WHICH HOME TO USE. CM CALLED MR. GOSS AND LEFT MESSAGE TO CALL CM. CM CALLED THE MOTHER OF MS. GOSS AND EXPLAINED WHY HOSPICE NEEDED A HOME AT THIS TIME. MOTHER WAS APOLOGETIC TO THE SITUATION AND STATED SHE WOULD HAVE MR. GOSS CALL. MR. GOSS DID CALL WITHIN 1 MINUTE AND STATED TO USE [facility] IN [place]. HOSPICE AND HEBREW CANTOR WAS TOLD THE DECISION.
--- NOTE | 2016-08-29 09:52 | NUR ---
HOSPICE NURSE SPOKE TO PT'S . DID DECIDE ON HOME. HOME HAS BEEN CALLED.
--- NOTE | 2016-08-29 10:31 | NUR ---
PT TAKEN BY [facility]. HOSPICE [facility]STOR[facility] HERE AND STATES "WILL CALL ."
== END 2016-08-29 10:36 | DRG 951 ==
LOC: D.ICU 20:36
PROVIDERS: ADMIT Family Medicine
DX: Z51.5 Encounter for palliative care (principal)